=== PATIENT | male | born 1980 | race Caucasian/White ===

== ENCOUNTER 2018-12-22 20:47 | Emergency (ER) | payer MEDICAID, SELFPAY ==
[2018-12-22 20:48] VITALS: BP 163/100; PULSE 113; RESP 18; TEMP 35.8; O2SAT 95; BMI 26.6
--- NOTE | 2018-12-22 21:57 | ED.VISSUMM ---
- ER Visit Summary Date of Service: 12/22/18 Chief Complaint: [Right shoulder pain] History of Present Illness: The patient is a 38 M [presents to the emergency department with pain in his right shoulder for about 2-3 weeks. Patient denies any trauma. He describes a burning sensation in the shoulder. At times he has some numbness to the top of the shoulder and the area of the trapezius. He denies any neck pain. He denies any weakness the extremity. He has been taking ibuprofen and Tylenol with how much pain relief. He had a scheduled appointment with orthopedics but when he got there he found out that they would not take his Medicaid insurance and he did not have $100 co-pay to get them so he could be seen. Patient has a history of hypertension. He denies any shortness of breath or chest pain.] Physical Examination: [HEENT-PERRLA, EOMI. Cranial nerves II through XII grossly intact. TMs clear. Mucous membranes moist. No adenopathy. Cardiovascular-regular rate and rhythm without murmur or ectopy Lungs-clear to auscultation, chest wall stable without crepitus or subcu emphysema Abdomen-normoactive bowel sounds, soft, nontender, no rebound or rigidity, no peritoneal signs. Extremities-intact ?4, normal range of motion, normal pulses, atraumatic. Right shoulder-patient has pain with range of motion of the shoulder however he has normal strength with abduction. Neurovascular intact distally. Patient has some tenderness to the trapezius and supraspinatus muscle. No muscle wasting noted. Deep tendon reflexes are plus 2 out of 4 bilaterally at the biceps, triceps, brachial radialis.] Test Results: [None indicated] Emergency Department Course and Treatment: [Patient was given [place] for pain.] Treatment Plan: [Patient to follow-up with orthopedics as they have made arrangements for a new appointment.] Disposition: [Discharged to home in stable condition] Impression: [Right shoulder pain-etiology uncertain] This note was generated with [employer] dictation software. It may contain incorrect words, spelling, and punctuation that were not noted in review of the chart prior to signing ED Disposition - Plan for ED Patient: Referrals: Care Physician,No Primary [Primary Care Provider] -
--- NOTE | 2018-12-22 22:02 | DCINST.ED_ITS ---
ED Disposition - Plan for ED Patient: Instructions: ED Shoulder Pain [facility] Prescriptions: Hydrocodone Bitart/Apap 5-325 [[place] 5MG-325MG] 1 tab PO Q4H PRN PRN 2 Days #10 tab PRN Reason: Pain Referrals: Care Physician,No Primary [Primary Care Provider] - Parrish Temple DO [STAFF PHYSICIAN] - 3-5 Days
[2018-12-22 22:32] VITALS: RESP 18
[2018-12-22] MEDS: HYDROcodone Bitartrate/Apap 5/325 Tablet PO (22:32)
== END 2018-12-22 22:33 | disposition home or self-care (01) ==
PROVIDERS: Emergency Provider Emergency Medicine
DX: M25.511 Pain in right shoulder (principal); I10 Essential (primary) hypertension; F12.90 Cannabis use, unspecified, uncomplicated; Z72.0 Tobacco use
CPT/HCPCS: 99283

== ENCOUNTER → 2019-01-22 11:04 | Outpatient (CLI) | payer MEDICAID, SELFPAY ==
[2019-01-22 10:59] VITALS: BMI 26.6
--- NOTE | 2019-01-22 11:05 | RAD_ITS ---
STUDY: X-RAY - RIGHT SHOULDER REASON FOR EXAM: Pain. TECHNIQUE: 4 view(s) of the shoulder. COMPARISON: Radiographs 11/08/2015. FINDINGS: Normal glenohumeral articulation. There is no substantial acromioclavicular arthrosis. Normal acromion. Normal humeral head and visualized proximal humerus. The soft tissue structures are unremarkable. Normal visualized pulmonary apex. RAD/Shoulder min 2 Views IMPRESSION: Unremarkable x-ray examination of the right shoulder. Electronically Signed: Trell Miller MD at 13:51 EDT Tel , Service support ,
--- NOTE | 2019-01-22 11:05 | RAD_ITS ---
STUDY: X-RAY - CERVICAL SPINE REASON FOR EXAM: Male, 38 years old. Right shoulder and neck pain. TECHNIQUE: 4 view(s) of the cervical spine including lateral flexion and extension views were obtained. COMPARISON: None FINDINGS: Normal anterior atlantoaxial articulation. Normal odontoid process. Normal cervical lordosis. There is limited flexion and extension with no abnormal motion. Normal vertebral bodies and endplates. Normal disc space heights. Normal visualized intervertebral neuroforamina. There is ossification of the ligamentum nuchae. RAD/Cerv Spine Obl/Flex/Ext Comp IMPRESSION: Limited flexion and extension with no abnormal motion. No acute finding. Electronically Signed: Henri Wilburn MD at 16:06 EDT , Service support ,
== END ==
PROVIDERS: Referring Provider Orthopaedic Surgery; Visit Provider Orthopaedic Surgery
DX: M54.2 Cervicalgia (principal); M25.511 Pain in right shoulder
CPT/HCPCS: 72052; 73030

== ENCOUNTER 2019-02-22 01:29 | Emergency (ER) | payer MEDICAID, SELFPAY ==
[2019-01-22 10:59] VITALS: BMI 26.6
[2019-02-22 01:31] VITALS: BP 154/108; PULSE 130; RESP 18; TEMP 36.7; O2SAT 95; BMI 29.4
--- NOTE | 2019-02-22 02:14 | ED.VISSUMM ---
- ER Visit Summary Date of Service: 02/22/19 Chief Complaint: Right ear pain and drainage History of Present Illness: The patient is a 38 M who presents with right ear pain and drainage that has been getting worse over the past 2 days. Patient describes the pain as aching. Patient also feels a fullness in his right ear and admits to some decreased hearing out of his right ear. Patient states his pain is over the right external ear and earlobe. Patient admits to subjective fevers and chills. Patient also admits to a cough with some white sputum. Patient admits to some nausea but denies any vomiting. Patient denies any headaches or visual changes. Patient denies any neck pain. Patient denies any chest pain or shortness of breath. Physical Examination: Vital signs are stable except for tachycardia of 130. Patient is afebrile. Patient is in no acute distress. The right external auditory canal was occluded with cerumen. There is edema, erythema, tenderness, and serous drainage from the right earlobe. Oral mucosa is pink and moist. Oropharynx is clear. Neck is supple. Trachea is midline. There is no JVD noted. Heart was regular and tachycardic. Lungs are clear and equal bilateral. Abdomen is soft. Bowel sounds are normal. There is no tenderness. Cranial nerves II through XII are intact. There are no focal motor or sensory deficits noted. Test Results: CBC showed a mild leukocytosis of 13.2. Creatinine was 1.74. BUN was 28. The remaining labs were normal. Emergency Department Course and Treatment: Patient was given IV fluids here. Patient was given a dose of Unasyn here. Patient's heart rate improved tomorrow for reevaluation. Patient was feeling better on reevaluation. Patient was given a prescription for Augmentin. Patient was instructed to follow-up with his primary care physician in 5 to 7 days. Patient understood and was agreeable with the plan. All questions were answered. Disposition: Discharge home Impression: 1. Cellulitis right ear 2. Dehydration This note was generated with [employer] software. It may contain incorrect words, spelling, and punctuation that were not noted in review of the chart prior to signing ED Disposition - Plan for ED Patient: Disposition: Home or Assisted Living Diagnosis: Cellulitis of right earlobe, Dehydration Instructions: ED Cellulitis Facial Prescriptions: Amox/Clavulanate Tablet [Augmentin Tablet] 403 mg PO Q12H #20 tab Referrals: Care Physician,No Primary [Primary Care Provider] - Shania Marrero DO [STAFF PHYSICIAN] - 5-7 Days
[2019-02-22] MEDS: 0.9% Normal Saline 1,000 ML 1000 ML IV (02:26)
[2019-02-22 02:43] LABS: Absolute Lymphocyte Count 2.45 X10^3/ul (0.83-4.51); Absolute Neutrophil Count 9.7 X10^3/uL (2.0-7.7); Basophil# 0.05 X10^3/uL; Basophil% 0.4 % (0-1); Eosinophil# 0.02 X10^3/uL; Eosinophils% 0.2 % (0-5); Hematocrit 47.9 % (40-54); Hemoglobin 15.7 g/dl (13.0-16.5); Lymphocyte # 2.45 X10^3/ul (4.0); Lymphocyte % 18.5 % (19-41); Mean Corp Hgb Conc 32.8 g/gl (32-36); Mean Corpuscular Volume 88.5 fL (80-94); Mean Platelet Vol. 9.6 fl (6.2-12.0); Monocyte% 7.6 % (0-10); Neutrophil # 9.67 X10^3/uL (2.7-7.7); Platelet Count 331 K/mm3 (150-450); RBC Distribution Width SD 45.2 fl (35.1-43.9); Red Blood Count 5.41 M/mm3 (4.6-6.2); White Blood Count 13.2 K/mm3 (4.4-11.0)
[2019-02-22 02:44] LABS: Differential Indicated SCAN CRITERIA MET; POSITIVE COUNT NO; POSITIVE DIFFERENTIAL NO; POSITIVE MORPHOLOGY YES
[2019-02-22 02:45] LABS: Anion Gap 9 (5-15); BUN 28 mg/dL (7-18); BUN/Creat Ratio 16.1 RATIO (10-20); Calcium,Total 9.4 mg/dL (8.5-10.1); Chloride 105 mmol/L (98-107); Creatinine, Serum 1.74 mg/dL (0.70-1.30); EST Glomerular Filtration Rate 47 mL/min (>60); Est Glom Filt Rate - Afr Amer 57 mL/min (>60); Estimated Creatinine Clearance 53.82 ml/min; Glucose 97 mg/dL (74-106); Potassium 4.1 mmol/L (3.5-5.1); Sodium Level 141 mmol/L (136-145)
[2019-02-22 03:10] LABS: Differential Comment SCANNED
[2019-02-22 03:24] VITALS: BP 149/100; PULSE 100; RESP 22; O2SAT 98
== END 2019-02-22 03:29 | disposition home or self-care (01) ==
PROVIDERS: Emergency Provider Emergency Medicine
DX: H60.11 Cellulitis of right external ear (principal); E86.0 Dehydration; I10 Essential (primary) hypertension; Z72.0 Tobacco use
CPT/HCPCS: 80048; 85025; 96365; 99284; A4216; J0295

== ENCOUNTER 2019-03-03 05:58 | Observation (INO) | payer MEDICAID, SELFPAY ==
[2019-03-03] VITALS (11 sets, daily range): BP systolic 140–172; BP diastolic 67–101; PULSE 74–92; RESP 16–18; TEMP 36.7–36.8; O2SAT 97–98; BMI 31.4; BMI 30.4
--- NOTE | 2019-03-03 06:12 | RAD_ITS ---
HISTORY: Chest Pain EXAM:XR Chest 2 Views COMPARISON: None FINDINGS: EKG leads in place. Normal heart size. No vascular congestion, pleural effusion, or acute pulmonary infiltration. No pneumothorax. Probable remote fracture of the anterolateral left fifth rib. Chronic deformity of the distal left clavicle. RAD/Chest PA and Lateral IMPRESSION: No acute cardiopulmonary disease. at 0635 Reported and signed by: Shar Henning MD Electronically Signed: Shar Henning, at 6:34 EDT Tel , Service support ,
--- NOTE | 2019-03-03 06:12 | EKG12_ITS ---
Test Reason : CP Blood Pressure : / mmHG Vent. Rate : 090 BPM Atrial Rate : 090 BPM P-R Int : 162 ms QRS Dur : 092 ms QT Int : 360 ms P-R-T Axes : 061 010 053 degrees QTc Int : 440 ms Normal sinus rhythm Incomplete right bundle branch block Borderline ECG Confirmed by JAZMINE MARIN ([id number]), photograph editor DANIELLE HOPPER ([id number]) on 03/05/2019 8:44:02 AM Referred By: YAMILKA Confirmed By:JAZMINE MARIN
--- NOTE | 2019-03-03 06:15 | ED.DCSUM_ITS ---
- ER Visit Summary Date of Service: 03/03/19 Chief Complaint: Chest pain History of Present Illness: The patient is a 38 M who presents with chest pain. Is been going on for about 2 to 3 days. He describes as a tightness diffusely through his chest with radiation down the left arm and into the back. This is worse when he coughs. He also states that he feels short of breath and has intermittently become sweaty. 4 days ago he had a near syncopal episode where he just got dizzy and fell. This was before his pain began. No recent travel or surgery. No history of DVT or pulmonary embolism. He is treated for hypertension. He has a history of renal failure remotely however this did re- resolve and they are uncertain what caused it. Physical Examination: Initial blood pressure 172/101 vitals otherwise normal Patient slightly diaphoretic Heart regular rate and rhythm Lungs clear he does have some mid chest tenderness Abdomen soft Extremities nontender without edema Test Results: EKG shows a sinus rhythm at a rate of 90 with an incomplete right bundle branch block. Laboratory studies including troponin and d-dimer unremarkable. Chest x-ray shows no acute disease. Emergency Department Course and Treatment: Even aspirin. His work-up as above is unremarkable. However I am concerned given his report of chest pain, shortness of breath, diaphoresis, near syncope. I feel that at minimum he needs serial enzymes and possible stress testing. Patient was discussed with hospitalist who agrees to admit. Treatment Plan: [] Disposition: Admit Impression: Chest pain This note was generated with [employer] dictation software. It may contain incorrect words, spelling, and punctuation that were not noted in review of the chart prior to signing ED Disposition - Plan for ED Patient: Referrals: Care Physician,No Primary [Primary Care Provider] -
[2019-03-03 06:23] LABS: Absolute Lymphocyte Count 2.81 X10^3/ul (0.83-4.51); Absolute Neutrophil Count 4.2 X10^3/uL (2.0-7.7); Basophil# 0.03 X10^3/uL; Basophil% 0.4 % (0-1); Eosinophil# 0.24 X10^3/uL; Hematocrit 42.2 % (40-54); Hemoglobin 13.9 g/dl (13.0-16.5); Lymphocyte # 2.81 X10^3/ul (4.0); Lymphocyte % 34.6 % (19-41); Mean Corp Hgb Conc 32.9 g/gl (32-36); Mean Corpuscular Hgb 29.9 pg (27.0-32.0); Mean Corpuscular Volume 90.8 fL (80-94); Mean Platelet Vol. 9.7 fl (6.2-12.0); Monocyte# 0.82 X10^3/uL; Monocyte% 10.1 % (0-10); Neutrophil % 51.8 % (47-70); Platelet Count 338 K/mm3 (150-450); RBC Distribution Width CV 13.4 % (11.6-14.6); RBC Distribution Width SD 44.2 fl (35.1-43.9); Red Blood Count 4.65 M/mm3 (4.6-6.2); White Blood Count 8.1 K/mm3 (4.4-11.0)
[2019-03-03 06:26] LABS: POSITIVE COUNT NO; POSITIVE DIFFERENTIAL NO; POSITIVE MORPHOLOGY NO
[2019-03-03] MEDS: Aspirin 81 MG TAB.CHEW 324 MG PO (06:40)
[2019-03-03 06:41] LABS: Anion Gap 7 (5-15); BUN 19 mg/dL (7-18); BUN/Creat Ratio 15.3 RATIO (10-20); Calcium,Total 8.5 mg/dL (8.5-10.1); Chloride 110 mmol/L (98-107); Creatinine, Serum 1.24 mg/dL (0.70-1.30); EST Glomerular Filtration Rate 69 mL/min (>60); Est Glom Filt Rate - Afr Amer 84 mL/min (>60); Estimated Creatinine Clearance 75.52 ml/min; Glucose 118 mg/dL (74-106); Potassium 3.7 mmol/L (3.5-5.1); Sodium Level 143 mmol/L (136-145)
[2019-03-03 07:10] LABS: D-Dimer Quantitative (DVT/PE) < 0.27 FEU/ug/m (0.27-0.49)
--- NOTE | 2019-03-03 07:19 | HP.PCM_ITS ---
History of Present Illness Date of Admission: 03/03/19 Chief Complaint: chest pain The patient is a 38 year old M with past medical history of polysubstance abuse and hypertension. He was admitted through the ED on 02/23/2019 with a complaint of chest pain. Chest pain was retrosternal, both on the right and left side, assisted with diaphoresis and lightheadedness as well as shortness of breath. Chest pain is reproducible with palpation. He states chest pain has been going on for about a year but got severe yesterday so he decided to come into the ED. The ED, vitals were stable. D-dimer done was negative. EKG done no showed no acute ST changes. Initial troponin was negative. He also said he had a near syncopal episode due to chest pain. He is being admitted to be manages for chest pain to rule out ACS. ] Past Medical History Past Medical History (Chronic Problems): Chronic Problems (Last Updated 01/22/19 @ 11:56 by Sandhya Palmer) history of head trauma (Chronic) Medical History: Medical History (Last Updated 01/22/19 @ 11:56 by Sandhya Palmer) Hypertension I10 Allergies ciprofloxacin [From Cipro] Allergy (Verified 03/03/19 06:04) Hives Home Medications: Ambulatory Orders Medication Instructions Recorded Lisinopril 20 mg PO DAILY 12/22/18 Acetaminophen [Tylenol] 650 mg PO Q6H PRN PRN #30 tablet 03/03/19 Surgical History: no surgical history Psychiatric History: No pertinent psych hx Lives: Spouse/ Significant Other Smoking Status: Current every day smoker Tobacco Use: Cigarettes Alcohol: None - *Family History Maternal History Items: No pertinent history Review of Systems Constitutional: Denies: Chills, Fever, Weight Change Eyes: Denies: Blurred vision HEENT: Denies: Head Aches, Sinus Congestion, Sinus Drainage Cardiovascular: Reports: Chest Pain, Light Headedness. Denies: Chest Pressure, Chest Tightness, Edema, Heaviness, Orthopnea, Palpitations, Paroxysmal Noc. Dyspnea, Syncope Respiratory: Reports: Shortness of Breath, Shortness of breath upon exertion. Denies: Cough, Shortness of breath at rest, Sputum production, Wheezing Gastrointestinal: Denies: Abdominal Pain, Nausea, Vomiting Genitourinary: Denies: Dysuria Musculoskeletal: Denies: Joint Pain, Joint Tenderness Skin: Denies: Rash, Wounds Neurological: Denies: Numbness, Tingling, Focal weakness Psychiatric: Denies: Anxiety, Depression, Homicidal Ideations, Suicidal Ideations Hematologic/ Lymphatic: Denies: Easy Bruising, Easy Bleeding VTE Information - Inpt Only VTE Present on Admission: No VTE Pharm Prophylaxis ordered?: Yes - Physical Exam General: Alert, Oriented x3, Cooperative, No apparent distress HEENT: Atraumatic, PERRLA, EOMI, Normocephalic Oral: Moist Mucosa Neck: Supple, No JVD, Negative Carotid Bruits Lungs: Clear to auscultation, Normal air movement Cardiovascular: Regular rate, Regular Rhythm, Normal S1, Normal S2, No murmurs Abdomen: Bowel Sounds Present, Soft, Non Tender Extremities: No clubbing, No cyanosis, No edema, Capillary Refill Less than 3 Seconds Skin: No rashes, No breakdown Musculoskeletal: - - chest pain reproducible with palpation Lymphatic: No Cervical, Supraclavicular, or Inguinal Adenopathy Neurological: Cranial nerves II-XII grossly intact, Deep Tendon Reflexes 2+/4 and Symmetrical, Neuro grossly intact, Motor Exam 5/5 strength throughout Psych/Mental Status: Normal Affect, Appropriate, Alert and oriented to time, place, person, mood and affect Vital Signs Temp Pulse Resp BP Pulse Ox 98.0 F 92 18 172/101 H 98 03/03/19 06:00 03/03/19 06:00 03/03/19 06:00 03/03/19 06:00 03/03/19 06:00 Oxygen Flow Rate (L/min) 2 Oxygen Delivery Method Nasal Cannula Weight: 200 lb 9.93 oz Body Mass Index (BMI) 31.4 Laboratory Tests Past 24 Hrs 03/03/19 03/03/19 03/03/19 06:03 06:03 06:03 WBC 8.1 RBC 4.65 Hgb 13.9 Hct 42.2 MCV 90.8 MCH 29.9 MCHC 32.9 RDW 13.4 RDW Differential 44.2 H Plt Count 338 MPV 9.7 Immature Gran % (Auto) 0.100 Neut % (Auto) 51.8 Lymph % (Auto) 34.6 Cochran % (Auto) 10.1 H Eos % (Auto) 3.0 Baso % (Auto) 0.4 Absolute Neuts (auto) 4.2 Absolute Lymphs (auto) 2.81 Total Counted Not Reportable D-Dimer Quant (PE/DVT) < 0.27 L Sodium 143 Potassium 3.7 Chloride 110 H Carbon Dioxide 26.0 Anion Gap 7 BUN 19 H Creatinine 1.24 Estim Creat Clear Calc 75.52 Est GFR (MDRD) Af Amer 84 Est GFR (MDRD) Non-Af 69 BUN/Creatinine Ratio 15.3 Glucose 118 H Calcium 8.5 Troponin I < 0.015 Diagnostic Data Chest X-Ray 03/03/19 06:12 IMPRESSION: No acute cardiopulmonary disease. at 0635 Reported and signed by: Shar Henning MD Electronically Signed: Shar Henning, at 6:34 EDT Tel , Service support , Assessment/Plan All Active Problems (Last Updated 01/22/19 @ 11:56 by Sandhya Palmer) Pilonidal cyst (Acute) 38-year-old male presenting with complaint of chest pain. 1. Chest pain to rule out ACS * She will troponin was negative. We will cycle. * Sublingual nitroglycerin as needed. * P.o. aspirin 81 mg daily. * Stress test. Will do nuclear stress test with treadmill. * 2. History of nicotine dependence: States he now smokes about half pack daily and cut down about 6 months ago from 1 pack daily. Counseled to quit. 3. Hypertension: Poorly controlled. Blood pressures in the 140s. On lisinopril 20 mg daily. Will continue. Counseled on adherence. IV hydralazine PRN. 4. History of polysubstance abuse: States he quit about 3 years ago and has been clean. Counseled to continue abstaining. DVT prophylaxis: Heparin Code Visit OBSV E&M: 84007 Initial observation care L2
--- NOTE | 2019-03-03 08:09 | EKG12_ITS ---
Test Reason : CP ADMISSION Blood Pressure : / mmHG Vent. Rate : 073 BPM Atrial Rate : 073 BPM P-R Int : 172 ms QRS Dur : 096 ms QT Int : 394 ms P-R-T Axes : 060 010 029 degrees QTc Int : 434 ms Normal sinus rhythm Incomplete right bundle branch block Borderline ECG When compared with ECG of 03-MAR-2019 06:01, MANUAL COMPARISON REQUIRED, DATA IS UNCONFIRMED Confirmed by DARREL VIGIL, ADDIE ([id number]), editor news CAITLIN MTZ ([id number]) on 03/09/2019 2:37:01 PM Referred By: PRANAV Confirmed By:ADDIE ROJO MD
[2019-03-03] MEDS: Nitroglycerin (INPATIENT USE) 0.4 MG TAB.SUBL SUBLINGUAL ×3 (09:17→09:28)
[2019-03-03] MEDS: Acetaminophen 325 MG Tablet 650 MG PO (09:40)
[2019-03-03 09:58] LABS: Partial Thromboplast Time 26.9 Seconds (24.1-36.2); Prothrombin Time (Protime)PT. 13.2 SECONDS (11.7-14.9)
--- NOTE | 2019-03-03 11:47 | STRESSREP ---
Stress Test Report Date: 03-03-19 Procedure: Exercise tolerance test/imaging study Indications: Chest pain Consent: Per the patient Procedure: The patient exercised on a Ramiro protocol for 10 minutes and 30 seconds completing Stage III and 1 minute and 30 seconds of Stage IV achieving a peak heart rate of 166 bpm (91 % predicted maximal heart rate) with a peak blood pressure 174/60 mmHg and a peak MET capacity of 12 METs. The baseline ECG demonstrated normal sinus rhythm. The peak exercise ECG demonstrated no obvious ECG changes. There were no cardiac dysrhythmias pretest, during exercise, or recovery. The functional capacity was considered good. There was chest discomfort pretest, during exercise, and recovery without significant change. The examination was discontinued secondary to dizziness. Impression: 1. Technically adequate (percent predicted maximal heart rate greater than 85%) exercise tolerance test 2. Peak exercise ECG with no obvious ECG changes 3. There were no cardiac dysrhythmias pretest, during exercise, or recovery 4. Nuclear images pending Myocardial perfusion imaging study: Technique: The patient was injected with 11.3 mCi of technetium 99m Cardiolite and subsequently rest SPECT Cardiolite nuclear imaging was obtained in the horizontal long, vertical long, and short axis views. The patient exercised on a Ramiro protocol for 10 minutes and 30 seconds completing Stage III and 1 minute and 30 seconds of Stage IV achieving a peak heart rate of 166 bpm (91 % predicted maximal heart rate) with a peak blood pressure 174/60 mmHg and a peak MET capacity of 12 METs.The patient was injected with 33.1 mCi of technetium 99m Cardiolite and subsequently stress SPECT Cardiolite nuclear imaging was obtained in the horizontal long, vertical long, and short axis views. A gated Cardiolite study at peak stress was obtained. Interpretation: Rest and stress SPECT Cardiolite nuclear imaging status post realignment, normalization, and attenuation correction, demonstrates the appearance of relative uniform tracer uptake and myocardial perfusion appearing within normal limits. There is end systolic thickening and brightening. The gated Cardiolite study demonstrates myocardial thickening and inward wall motion. The reported LVEF is 58 %. Impression: 1. Rest and stress SPECT Cardiolite nuclear imaging demonstrate relative uniform tracer uptake and myocardial perfusion appearing within normal limits. 2. The gated Cardiolite study reports an LVEF of 58 %. This note was generated with [employer] software. It may contain incorrect words, spelling, and punctuation that were not noted in checking the note before signing.
--- NOTE | 2019-03-03 12:05 | PCM.DC ---
You will use the following diet at home:: No restrictions Your food should be the consistency of: Regular Discharge Activity: Return to Normal Activity Weight Bearing Status: Weight bearing as tolerated Call your doctor if you observe: Chest pain Instructions: ED Chest Pain Atypical Unkn Cause Allergies/Adverse Reactions: Allergies ciprofloxacin [From Cipro] Allergy (Verified 03/03/19 06:04) Hives Medications to take at Discharge Lisinopril 20 mg PO DAILY 12/22/18 Acetaminophen [Tylenol] 650 mg PO Q6H PRN PRN #30 tablet 03/03/19 The following prescriptions were given: Acetaminophen [Tylenol] 650 mg PO Q6H PRN PRN #30 tablet PRN Reason: Pain Primary Care Physician: Care Physician,No Primary [Primary Care Provider] - Test Results: Test results from this visit will be discussed in further detail at your follow-up appointment, if applicable. Please Follow Up With: Frank Trujillo MD When: call office for an appointment. Proposed Discharge Date: 03/03/19
--- NOTE | 2019-03-03 12:07 | PCM.DC.SUM ---
Discharge Date and Diagnosis Date of Admission: 03/03/19 Date of Discharge: 03/03/19 - Primary Discharge Diagnosis chest pain musculoskeletal chest pain - Secondary Discharge Diagnosis Chronic Problems (Last Updated 01/22/19 @ 11:56 by Sandhya Palmer) history of head trauma (Chronic) Hospital Course and Treatment Imaging Results: 03/03/19 06:12 Chest PA and Lateral [RAD] Stat 03/03/19 09:24 Nuclear Stress Test - Treadmil [NM] Routine Operations: None Procedures: Stress test Summary of Care Provided: The patient is a 38 year old M with past medical history of polysubstance abuse and hypertension. He was admitted through the ED on 02/23/2019 with a complaint of chest pain. Chest pain was retrosternal, both on the right and left side, assisted with diaphoresis and lightheadedness as well as shortness of breath. Chest pain is reproducible with palpation. He states chest pain has been going on for about a year but got severe yesterday so he decided to come into the ED. The ED, vitals were stable. D-dimer done was negative. EKG done no showed no acute ST changes. He was admitted to be manages for chest pain to rule out ACS. He had a stress test which was negative. Since pain was reproducible with palpation, it was thought to be mainly musculoskeletal. He was therefore given a script for PO tylenol. He was discharged home on 03/03/19. he is to follow up with his PCP in one week. Patient had no PCP and so was referred to Dr. Chau Trujillo to establish PCP relationship. Patient was seen and examined prior to discharge. [] - Physical Exam General: Alert, Oriented x3, Cooperative HEENT: Atraumatic, PERRLA, EOMI, Normocephalic Oral: Moist Mucosa Neck: Supple, No JVD, Negative Carotid Bruits Lungs: Clear to auscultation, Normal air movement Cardiovascular: Regular rate, Regular Rhythm, Normal S1, Normal S2, No murmurs Abdomen: Bowel Sounds Present, Soft, Non Tender, Non-Distended, No Hepato-splenomegaly Extremities: No clubbing, No cyanosis, No edema, Capillary Refill Less than 3 Seconds Skin: No rashes, No breakdown Musculoskeletal: - - tenderness with palpation of chest wall muscles Lymphatic: No Cervical, Supraclavicular, or Inguinal Adenopathy Neurological: Cranial nerves II-XII grossly intact, Neuro grossly intact, Motor Exam 5/5 strength throughout Psych/Mental Status: Normal Affect, Appropriate, Alert and oriented to time, place, person, mood and affect Vital Signs Temp Pulse Resp BP Pulse Ox 98.2 F 83 16 140/67 H 97 03/03/19 09:16 03/03/19 09:28 03/03/19 09:16 03/03/19 09:33 03/03/19 11:00 Oxygen Flow Rate (L/min) 2 Oxygen Delivery Method Room Air Weight: 193 lb 9.054 oz Body Mass Index (BMI) 30.4 Intake and Output for Last 24 Hours 03/01/19 03/02/19 03/03/19 23:59 23:59 23:59 Intake Total 50 / 50 Balance 50 / 50 Laboratory Tests Past 24 Hrs 03/03/19 03/03/19 03/03/19 06:03 06:03 06:03 WBC 8.1 RBC 4.65 Hgb 13.9 Hct 42.2 MCV 90.8 MCH 29.9 MCHC 32.9 RDW 13.4 RDW Differential 44.2 H Plt Count 338 MPV 9.7 Immature Gran % (Auto) 0.100 Neut % (Auto) 51.8 Lymph % (Auto) 34.6 [place] % (Auto) 10.1 H Eos % (Auto) 3.0 Baso % (Auto) 0.4 Absolute Neuts (auto) 4.2 Absolute Lymphs (auto) 2.81 Total Counted Not Reportable PT INR APTT D-Dimer Quant (PE/DVT) < 0.27 L Sodium 143 Potassium 3.7 Chloride 110 H Carbon Dioxide 26.0 Anion Gap 7 BUN 19 H Creatinine 1.24 Estim Creat Clear Calc 75.52 Est GFR (MDRD) Af Amer 84 Est GFR (MDRD) Non-Af 69 BUN/Creatinine Ratio 15.3 Glucose 118 H Calcium 8.5 Troponin I < 0.015 03/03/19 03/03/19 06:03 08:40 WBC RBC Hgb Hct MCV MCH MCHC RDW RDW Differential Plt Count MPV Immature Gran % (Auto) Neut % (Auto) Lymph % (Auto) [place] % (Auto) Eos % (Auto) Baso % (Auto) Absolute Neuts (auto) Absolute Lymphs (auto) Total Counted PT 13.2 INR 1.0 APTT 26.9 D-Dimer Quant (PE/DVT) Sodium Potassium Chloride Carbon Dioxide Anion Gap BUN Creatinine Estim Creat Clear Calc Est GFR (MDRD) Af Amer Est GFR (MDRD) Non-Af BUN/Creatinine Ratio Glucose Calcium Troponin I < 0.015 Diagnostic Data Chest X-Ray 03/03/19 06:12 IMPRESSION: No acute cardiopulmonary disease. at 0635 Reported and signed by: Shar Henning MD Electronically Signed: Shar Henning, at 6:34 EDT Tel , Service support , Discharge Activity: Return to Normal Activity Weight Bearing Status: Weight bearing as tolerated Call your doctor if you observe: Chest pain Home Medications: Medications to take at Discharge Lisinopril 20 mg PO DAILY 12/22/18 Acetaminophen [Tylenol] 650 mg PO Q6H PRN PRN #30 tablet 03/03/19 Following Prescrptions Were Given to Patient: Acetaminophen [Tylenol] 650 mg PO Q6H PRN PRN #30 tablet PRN Reason: Pain Primary Care Physician: Care Physician,No Primary [Primary Care Provider] - Please Follow Up With: Frank Trujillo MD When: call office for an appointment. Patient Instructions: ED Chest Pain Atypical Unkn Cause Disposition: Home Minutes spent on discharge:: 40 Patient Condition:: Stable Medical Necessity - Tobacco Use Smoking Status: Current every day smoker Meaningful Use Info Meaningful Use Diagnoses (Choose all that apply): None applicable Code Visit OBSV E&M: 20934 Observ/hosp same date L3
--- NOTE | 2019-03-03 12:08 | DCINST_ITS ---
You will use the following diet at home:: No restrictions Your food should be the consistency of: Regular Discharge Activity: Return to Normal Activity Weight Bearing Status: Weight bearing as tolerated Call your doctor if you observe: Chest pain Instructions: ED Chest Pain Atypical Unkn Cause Allergies/Adverse Reactions: Allergies ciprofloxacin [From Cipro] Allergy (Verified 03/03/19 06:04) Hives Medications to take at Discharge Lisinopril 20 mg PO DAILY 12/22/18 Acetaminophen [Tylenol] 650 mg PO Q6H PRN PRN #30 tablet 03/03/19 The following prescriptions were given: Acetaminophen [Tylenol] 650 mg PO Q6H PRN PRN #30 tablet PRN Reason: Pain Primary Care Physician: Care Physician,No Primary [Primary Care Provider] - Test Results: Test results from this visit will be discussed in further detail at your follow- up appointment, if applicable. Please Follow Up With: Frank Trujillo MD When: call office for an appointment. Proposed Discharge Date: 03/03/19
--- NOTE | 2019-03-03 12:13 | PHA.DC.MR ---
Pharmacy Service has performed discharge medication reconciliation for this patient. The patient's discharge medication list was reviewed for discrepancies and discrepancies were resolved. Home Medications Lisinopril 20 mg PO DAILY 12/22/18 Acetaminophen [Tylenol] 650 mg PO Q6H PRN PRN #30 tablet 03/03/19
== END 2019-03-03 12:07 | disposition home or self-care (01) ==
LOC: ED 06:13 → PCU 07:30
PROVIDERS: Admitting Provider Student in an Organized Health Care Education/Training Program; Emergency Provider Emergency Medicine; Visit Provider Student in an Organized Health Care Education/Training Program
DX: R07.89 Other chest pain (principal); R06.02 Shortness of breath; I10 Essential (primary) hypertension; Z79.899 Other long term (current) drug therapy; F17.210 Nicotine dependence, cigarettes, uncomplicated
CPT/HCPCS: 36415; 71046; 78452; 80048; 84484; 85025; 85379; 85610; 85730; 93005; 93017; 99285; 99406; A9500; A4216

== ENCOUNTER 2019-03-14 19:11 | Emergency (ER) | payer MEDICAID, SELFPAY ==
[2019-03-03 08:11] VITALS: BMI 30.4
[2019-03-14 19:11] VITALS: BP 165/105; PULSE 98; RESP 18; TEMP 36.7; O2SAT 99; BMI 29.8
--- NOTE | 2019-03-14 19:29 | CT_ITS ---
STUDY: CT ABDOMEN AND PELVIS WITH CONTRAST REASON FOR EXAM: Male, 38 years old. Abdominal pain, fatigue and vomiting. Hematochezia. RADIATION DOSAGE (If Supplied By Facility): CTDIvol = ( 18.15 ) mGy, DLP = ( 932.41 ) mGycm TECHNIQUE: Transaxial images were obtained from the dome of the diaphragm to the symphysis pubis without oral contrast. 100ML IV Isovue 300 was administered. Sagittal and coronal images were reconstructed. Individualized dose optimization techniques were used for this CT. COMPARISON: None. FINDINGS: There is mild scarring in the right lung base. Visualized heart is normal. The liver is unremarkable. The gallbladder is contracted. The pancreas is normal. There are multiple calcifications in the spleen consistent with old granulomatous disease. The adrenal glands are normal. The kidneys are unremarkable. No stones or hydronephrosis. The aorta is normal in caliber. There is no free fluid, free air, or organized collection. No bowel obstruction or inflammatory change. Normal appendix. Urinary bladder is unremarkable. Normal abdominal wall. There is an old ununited fracture of the right L3 transverse process. There is chronic loss of vertebral body height at T12. Mild degenerative changes of the thoracolumbar spine are noted. No acute osseous abnormality. CT/Abdomen/Pelvis W IV Cont ONLY IMPRESSION: 1. No acute findings. 2. Old granulomatous disease. 3. Chronic changes are detailed above. Electronically Signed: Leyla Frank MD at 21:01 EDT Tel , Service support ,
[2019-03-14 19:32] VITALS: BP 177/104; PULSE 86; RESP 16; O2SAT 100
--- NOTE | 2019-03-14 19:42 | ED.DCSUM_ITS ---
- ER Visit Summary Date of Service: 03/14/19 Chief Complaint: Abdominal pain History of Present Illness: The patient is a 38 M who presents to the emergency department with a variety of complaints that are very sporadic and quite odd. He states that he is having some sharp pains in his abdomen that began today. Today he states he vomited. States he has had some bright red blood with his orange stool both in the toilet water and on the toilet paper. He states that he is sweating a oranges yellow substance. He states that he has some white stringy things in his stool. [facility] and they advised him to bring a stool specimen back on Saturday. Interestingly enough the patient checked him with another patient who has similar complaints except for the abdominal pain and vomiting. Patient has a long history of polysubstance abuse but states he has been clean. Physical Examination: Afebrile vital signs are stable Gen: Well-nourished well-developed Head: Normocephalic atraumatic Eyes: Perrl EOMI ENT: TMs clear no rhinorrhea moist mucous membranes Neck: Supple no lymphadenopathy no JVD nontender CVS: Regular rate rhythm no murmurs normal S1-S2 Respiratory: No distress clear to auscultation bilaterally chest nontender Abdomen: Soft nontender nondistended normal bowel sounds no masses Rectal: non thrombosed hemorrhoid no blood no fissure Back: Nontender Extremity: Nontender no edema Skin: Normal color no rash Neuro: alert orientated ?3 CN II-XII intact normal strength sensation reflexes gait cerebellar Psych: No SI/HI Test Results: CBC CMP is normal. Urine normal. CT abdomen pelvis normal. Emergency Department Course and Treatment: Patient received Zofran and Toradol. He is resting comfortably. I will write for Zofran at home. He is to follow-up with his doctors as scheduled on Saturday for return of the stool specimen. I believe his bleeding is most likely hemorrhoidal in nature. Impression: 1. Acute abdominal pain 2. Hemorrhoidal bleeding This note was generated with [employer] dictation software. It may contain incorrect words, spelling, and punctuation that were not noted in review of the chart prior to signing ED Disposition - Plan for ED Patient: Disposition: Home or Assisted Living Instructions: ED Hemorrhoids Referrals: Barbie Devi [NON-STAFF] - (as scheduled)
[2019-03-14] MEDS: Ketorolac 30 MG/ML Syringe IV (19:48)
[2019-03-14] MEDS: Ondansetron 4 MG/2 ML Vial IV (19:48)
[2019-03-14] MEDS: 0.9% Normal Saline 1,000 ML 1000 ML IV (19:48)
[2019-03-14 20:03] LABS: Absolute Lymphocyte Count 2.17 X10^3/ul (0.83-4.51); Absolute Neutrophil Count 3.6 X10^3/uL (2.0-7.7); Basophil# 0.05 X10^3/uL; Basophil% 0.8 % (0-1); Hematocrit 40.4 % (40-54); Hemoglobin 12.8 g/dl (13.0-16.5); Lymphocyte # 2.17 X10^3/ul (4.0); Mean Corp Hgb Conc 31.7 g/gl (32-36); Mean Corpuscular Hgb 29.1 pg (27.0-32.0); Mean Corpuscular Volume 91.8 fL (80-94); Mean Platelet Vol. 9.8 fl (6.2-12.0); Monocyte# 0.51 X10^3/uL; Monocyte% 7.8 % (0-10); Neutrophil # 3.64 X10^3/uL (2.7-7.7); Neutrophil % 55.4 % (47-70); Platelet Count 315 K/mm3 (150-450); RBC Distribution Width CV 12.9 % (11.6-14.6); RBC Distribution Width SD 43.5 fl (35.1-43.9); White Blood Count 6.6 K/mm3 (4.4-11.0)
[2019-03-14 20:08] LABS: POSITIVE COUNT NO; POSITIVE DIFFERENTIAL NO; POSITIVE MORPHOLOGY NO
[2019-03-14 20:16] LABS: Bacteria 0 SEEN /hpf (None Seen); Mucous, Urine 0 SEEN /hpf (<or=2+); Red Blood Cells-Urine 0 SEEN /hpf (0-5); Squamous Epithelial Cells - UA 0 SEEN /hpf (0-5); White Blood Cells 0 SEEN /hpf (0-5)
[2019-03-14 20:20] LABS: AST(SGOT) 121 U/L (15-37); Alanine Aminotransfer ALT/SGPT 242 U/L (16-61); Albumin, Serum 3.4 g/dL (3.2-5.0); Alkaline Phosphatase 106 U/L (45-117); Anion Gap 7 (5-15); BUN 8 mg/dL (7-18); BUN/Creat Ratio 8.1 RATIO (10-20); Calcium,Total 8.5 mg/dL (8.5-10.1); Chloride 109 mmol/L (98-107); Creatinine, Serum 0.99 mg/dL (0.70-1.30); EST Glomerular Filtration Rate 90 mL/min (>60); Est Glom Filt Rate - Afr Amer 108 mL/min (>60); Estimated Creatinine Clearance 94.59 ml/min; Globulin 3.4 g/dL (2.2-4.2); Glucose 127 mg/dL (74-106); Lipase 122 U/L (73-393); Potassium 3.5 mmol/L (3.5-5.1); Protein, Total 6.8 g/dL (6.4-8.2); Sodium Level 144 mmol/L (136-145)
[2019-03-14 20:24] LABS: Color, Urine Yellow (Yellow); Glucose, Dipstick Normal (Normal); Ketone-Dipstick Negative (Negative); Leukocyte Esterase-Dipstick 25 /ul (Negative); Nitrite-Dipstick Negative (Negative); Occult Blood-Urine Negative /ul (Negative); Protein-Dipstick Negative (Negative); Urine Bilirubin Dipstick Negative (Negative); Urine Clarity Clear (Clear); Urine Urobilinogen Normal (Normal); Urine pH 6.5 (5.0 - 8.0)
[2019-03-14 20:53] LABS: Amphetamine Urine VISTA NEGATIVE (<1000 ng/mL); Barbiturate Urine VISTA NEGATIVE (< 200 ng/mL); Benzodiazepine Urine VISTA NEGATIVE (< 200 ng/mL); Cocaine Urine VISTA NEGATIVE (< 300 ng/mL); Ecstacy Urine VISTA NEGATIVE (< 500 ng/mL); Methadone Urine VISTA NEGATIVE (< 300 ng/mL); PCP Urine VISTA NEGATIVE (< 25 ng/mL); THC Urine VISTA NEGATIVE (< 50 ng/mL); Vista UDS pH Range 6
[2019-03-14 21:23] VITALS: BP 152/99; PULSE 80; RESP 16; O2SAT 98
== END 2019-03-14 21:25 | disposition home or self-care (01) ==
PROVIDERS: Emergency Provider Emergency Medicine
DX: R10.9 Unspecified abdominal pain (principal); K64.9 Unspecified hemorrhoids; I10 Essential (primary) hypertension; Z72.0 Tobacco use
CPT/HCPCS: 74177; 80053; 80307; 81001; 83690; 85025; 96361; 96374; 96375; 99283; J7030; Q9967; A4216; J2405

== ENCOUNTER 2019-04-08 10:59 | Emergency (ER) | payer MEDICAID, SELFPAY ==
[2019-04-08 11:02] VITALS: BP 119/80; PULSE 92; RESP 20; TEMP 36.8; O2SAT 96; BMI 28.0
--- NOTE | 2019-04-08 11:29 | ED.VIS.GEN ---
History of Present Illness Chief Complaint: Alt LOC Informant: Patient, Family Current Severity: Mild Narrative: Patient presents with police and paramedics apparently was found per the family basically sleeping either on a city bench or next to a city bench the reports that basically they are homeless they have had really nowhere to rest she was in a building taking care of some type of process related to their social situation she had her eye on her and she saw him basically laid down when she came out of this building he had seemed to have trouble waking up in the police and paramedics were called and he was brought to the hospital she indicates he has not been ill in anyway he has had no fever no cough no trauma, she is been with him all day, in addition she does admit that both of them have a prior history for drug abuse but she indicates they have been sober for some time and this is not related to drug abuse, the is basically stating very bluntly that her simply tired and she wants us to let him rest Past Medical History - Allergies and Home Meds Allergies/Adverse Reactions: Allergies ciprofloxacin [From Cipro] Allergy (Verified 03/14/19 19:13) Breana Primary Care Physician: Care Physician,No Primary [Primary Care Provider] - Past Medical History: - - Prior history of drug abuse and the believes he may have hep C his health has been very good recently Surgical History: no surgical history Smoking Status: Current every day smoker - Family History Maternal Family History: Reports: No pertinent history Review of Systems General: Reports: - - Denies all as above. Denies: Chills, Fever, Sweats Eyes: Denies: Visual changes - bilaterally, Diplopia ENT: Denies: Rhinorrhea, Sore throat Cardiovascular: Denies: Chest pain, Palpitations Respiratory: Denies: Dyspnea, Cough, Dyspnea on exertion Gastrointestinal: Denies: Abdominal pain, Nausea, Vomiting, Diarrhea, Melena, Hematochezia Genitourinary: Denies: Dysuria, Hematuria, Frequency Musculoskeletal: Denies: Back pain, Extremity Pain Skin: Denies: Rash, Wounds Neurological: Denies: Headache, Weakness, Numbness Physical Exam Vital Signs/Narrative: Vital Signs Temp Pulse Resp BP Pulse Ox 04/08/19 11:02 98.2 F 92 20 H 119/80 96 General: Well nourished, Well developed, No Acute Distress, - - Is resting company the bed his vital signs are unremarkable he does appear to be asleep he is very easily arousable he wakes up he looks around was all 4 extremities moans such as like leave me alone in response to his there is no signs of head neck chest or abdominal trauma or pain Head: Normocephalic, Atraumatic Eyes: Perrl, EOMI ENT: Moist mucous membranes, No rhinorrhea Neck: Supple, Nontender Cardiovascular: Regular rate, Regular rhythm, No murmurs Respiratory: No distress, CTA bilaterally, Chest nontender Abdomen: Soft, Nontender, Nondistended, Normal bowel sounds Back: Nontender, Normal Inspection Extremities: Nontender, No edema Skin: Normal color, No rash Neurological: Alert, Oriented x3, Cranial nerves II-XII grossly intact, Normal Strength, Normal Sensation Psychological: Normal affect, Normal Mood Diagnostic/Tx/Re-eval - Medical Decision Making I had a long conversation with the I explained to we could do IV fluids screening labs etc. she really declined that indicating again that they are homeless they have been physically exhausted from the heat, the patient will not be given oral fluids food to eat we will observe him his bGT was unremarkable his EKG per assisted living associate shows sinus rhythm nothing acute and again his physical exam vital signs are unremarkable she basically wants us to provide him a respite in the air conditioning, all fluids or rehydration and nothing else Have provided the patient with food and drink he has been observed the emergency department his status is very stable at this time he will be discharged home and we will have the patient work with social science research assistant for homelessness issues Home stable Final impression Fatigue homelessness ED Disposition - Plan for ED Patient: Diagnosis: Fatigue Instructions: Altered Loc Referrals: Care Physician,No Primary [Primary Care Provider] - Additional Instructions: Follow-up with social science research assistant for further options related to homelessness
--- NOTE | 2019-04-08 12:05 | CM.ED ---
SOCIAL WORK INFORMANT: DR. MERINO REASON FOR REFERRAL: RESOURCES UPON ENTERING PATIENT'S ROOM WITH REGISTRATION, PATIENT ASLEEP IN BED, ON THE FLOOR NEXT TO BED SLEEPING. NURSING ASSISTED IN WAKING UP , PATIENT REMAINED ASLEEP. INTRODUCED ROLE AND REASON FOR REFERRAL. HOLDING ON TO SIDE OF PATIENT'S BED AND SWAYING BACK AND FORTH, CLOSING EYES. STATES SHE AND PATIENT ARE HOMELESS AND CANNOT GET HELP SHE WAS IN THE [employer] CHARGE. DISCUSSED HX OF DRUG ABUSE AND STATES SHE AND PATIENT HAVE BEEN CLEAN AND SOBER FOR 2 YEARS. ATTEMPTED TO DISCUSS LOCAL COMMUNITY RESOURCES. STATES MISS, YOU CAN'T HELP. THIS WORKER LEFT ROOM WHILE REGISTRATION SPOKE WITH . UPDATED NURSING ON THE ABOVE. THIS WORKER TO REMAIN AVAILABLE FOR ANY FURTHER NEEDS. FILIPPO GARCIA, LOCATION AND MEASUREMENT TECHNICIAN, [employer] PORTABLE MACHINE.
[2019-04-08 12:44] VITALS: BP 110/80; PULSE 76; RESP 18; O2SAT 99
--- NOTE | 2019-04-08 12:56 | ED.RN ---
PT WAS ASKED IF HE HAD EATEN ANYTHING SINCE ARRIVING. PT NODDED HIS HEAD YES. SANDWICH AND BEVERAGE THAT WAS PROVIDED WERE NOT OPENED. HE AND HIS SIGNIFICANT OTHER AT RESTING EYES CLOSED. Carlos ESTEVES RN [id number]
== END 2019-04-08 13:12 | disposition home or self-care (01) ==
LOC: ED 12:06
PROVIDERS: Emergency Provider Emergency Medicine
DX: R53.83 Other fatigue (principal); F17.200 Nicotine dependence, unspecified, uncomplicated; Z59.0 Homelessness
CPT/HCPCS: 99284

== ENCOUNTER 2019-04-25 11:12 | Inpatient (IN) | payer MEDICAID, SELFPAY ==
[2019-04-25] VITALS (11 sets, daily range): BP systolic 89–123; BP diastolic 56–80; PULSE 85–117; RESP 12–20; TEMP 36.6–36.8; O2SAT 96–99; BMI 28.9; BMI 27.8
--- NOTE | 2019-04-25 11:57 | EKG12_ITS ---
Test Reason : Blood Pressure : / mmHG Vent. Rate : 112 BPM Atrial Rate : 112 BPM P-R Int : 134 ms QRS Dur : 094 ms QT Int : 352 ms P-R-T Axes : 056 -03 039 degrees QTc Int : 480 ms Sinus tachycardia Otherwise normal ECG Confirmed by DARREL VIGIL, ADDIE ([id number]), dictionary editor WILL PRESTON ([id number]) on 04/27/2019 1:39:05 PM Referred By: DOMINIC Confirmed By:ADDIE ROJO MD
--- NOTE | 2019-04-25 11:58 | ED.DCSUM_ITS ---
History of Present Illness Chief Complaint: Chest Pain Detail of Chief Complaint: Chest pain, dizzy, back pain Informant: Patient, Significant Other Onset: Today Current Severity: Mild Maximum Severity: Moderate Narrative: Patient has been outside doing yard work in the heat the past couple days. Today he states he got chest pain rated up into his jaw and back pain. He felt lightheaded and dizzy. He had similar symptoms in the past with renal failure. Patient and are unsure of details of his history, but states he has had renal failure twice that improved after IV hydration in the hospital. Patient was told it was because of a past use of drugs. They also report a history of 2 strokes when they lived in [place] last year. states his heart is enlarged and beats faster than the normal persons. Past Medical History - Allergies and Home Meds Allergies/Adverse Reactions: Allergies ciprofloxacin [From Cipro] Allergy (Verified 04/25/19 11:12) Breana Primary Care Physician: Iza Villarreal NP-C [Primary Care Provider] - Prior records reviewed: Yes Past Medical History: - - Reviewed Surgical History: no surgical history Lives: Spouse/ Significant Other Smoking Status: Current every day smoker - Family History Maternal Family History: Reports: No pertinent history Review of Systems General: Denies: Chills, Fever Eyes: Denies: Visual changes - left, Visual changes - right ENT: Denies: Bilateral ear pain Cardiovascular: Reports: Chest pain. Denies: Palpitations Respiratory: Denies: Dyspnea, Cough Gastrointestinal: Reports: Nausea. Denies: Abdominal pain, Vomiting Genitourinary: Denies: Dysuria - Decreased urinary frequency Musculoskeletal: Reports: Myalgias, Arthralgias, Back pain Skin: Denies: Rash Neurological: Reports: Headache Endocrine: Denies: Polyuria, Polydipsia Allergy: Reports: - - Throat feels dry and tight. Denies: Uticaria, Swelling of the mouth Physical Exam Vital Signs/Narrative: Vital Signs Temp Pulse Resp BP Pulse Ox 04/25/19 11:30 99 18 93/56 L 99 04/25/19 11:13 98.0 F 117 H 16 89/60 L General: Well nourished, Well developed Head: Normocephalic ENT: Dry mucous membranes Cardiovascular: Regular rate, Regular rhythm Respiratory: No distress, CTA bilaterally Abdomen: Soft, Nontender, Hypoactive bowel sounds Back: - - Paraspinal tenderness in the lumbar region bilaterally. Extremities: Nontender, No edema Skin: Normal color, Diaphoresis Neurological: Alert, Oriented x3, - - No focal neuro deficits Psychological: Normal affect Diagnostic/Tx/Re-eval Impressions Chest X-Ray 04/25/19 12:07 IMPRESSION: Stable, nonacute portable x-ray examination of the chest. Electronically Signed: Ashu Aragon MD at 12:19 EDT , Service support , 04/25/19 12:07 Chest 1 View (Portable) [RAD] Stat Laboratory Results 04/25/19 04/25/19 04/25/19 12:20 12:20 12:20 WBC 16.4 H RBC 5.21 Hgb 15.6 Hct 47.1 MCV 90.4 MCH 29.9 MCHC 33.1 RDW Std Deviation 44.1 H RDW Coeff of [place] 13.2 Plt Count 336 MPV 9.3 Immature Gran % (Auto) 0.400 Neut % (Auto) 82.3 H Lymph % (Auto) 12.4 L [place] % (Auto) 4.6 Eos % (Auto) 0.1 Baso % (Auto) 0.2 Absolute Neuts (auto) 13.4 H Absolute Lymphs (auto) 2.03 Absolute Nucleated RBC 0.00 Nucleated RBC % 0 Sodium 134 L Potassium 3.6 Chloride 100 Carbon Dioxide 25.0 Anion Gap 9 BUN 30 H Creatinine 3.36 H Estim Creat Clear Calc 27.87 Est GFR (MDRD) Af Amer 27 L Est GFR (MDRD) Non-Af 22 L BUN/Creatinine Ratio 8.9 L Glucose 80 Calcium 9.6 Total Creatine Kinase 350 H Cancelled Troponin I 0.032 - EKG Initial EKG Interpretation: Sinus Tachycardia - Sinus tachycardia at 112 with no sign of acute ischemia. - Medical Decision Making Patient was given IV fluids here. Heart rate is now in the 80s and blood pressure is 106/63. Patient will be given a small dose of fentanyl for back pain. His creatinine has increased from 0.99 on March 14 and is 3.36 today. He will be admitted for hydration and acute renal failure. ED Disposition - Plan for ED Patient: Disposition: Acute Care Hospital [facility] Diagnosis: Acute renal failure Referrals: Iza Villarreal NP-C [Primary Care Provider] -
[2019-04-25] MEDS: 0.9% Normal Saline 1,000 ML 1000 ML IV ×2 (12:00→12:30)
--- NOTE | 2019-04-25 12:07 | RAD_ITS ---
STUDY: X-RAY CHEST REASON FOR EXAM: Male, 38 years old. Chest pain TECHNIQUE: AP COMPARISON: 03/03/2019 FINDINGS: EKG leads project over the chest. The lungs are clear and expanded. There is no demonstrated pleural abnormality. Normal size heart. Normal mediastinum and jett. Normal visualized pulmonary arteries. Normal visualized aortic arch and descending thoracic aorta. Normal visualized thoracic spine. Normal visualized ribs, clavicles, and shoulders. There is no demonstrated abnormality of the visualized soft tissue structures of the upper abdomen. RAD/Chest 1 View (Portable) IMPRESSION: Stable, nonacute portable x-ray examination of the chest. Electronically Signed: Ashu Aragon MD at 12:19 EDT , Service support ,
[2019-04-25 12:29] LABS: Absolute Lymphocyte Count 2.03 X10^3/uL (0.83-4.51); Absolute Neutrophil Count 13.4 X10^3/uL (2.0-7.7); Basophil# 0.04 X10^3/uL; Basophil% 0.2 % (0-1); Eosinophil# 0.02 X10^3/uL; Eosinophils% 0.1 % (0-5); Hematocrit 47.1 % (40-54); Hemoglobin 15.6 g/dL (13.0-16.5); Lymphocyte # 2.03 X10^3/ul (4.0); Lymphocyte % 12.4 % (19-41); Mean Corp Hgb Conc 33.1 g/dL (32-36); Mean Corpuscular Hgb 29.9 pg (27.0-32.0); Mean Corpuscular Volume 90.4 fL (80-94); Mean Platelet Vol. 9.3 fl (6.2-12.0); Monocyte# 0.76 X10^3/uL; Monocyte% 4.6 % (0-10); NRBC Flagged by Analyzer 0 % (0-5); Neutrophil # 13.44 X10^3/uL (2.7-7.7); Neutrophil % 82.3 % (47-70); Platelet Count 336 K/mm3 (150-450); RBC Distribution Width CV 13.2 % (11.6-14.6); RBC Distribution Width SD 44.1 fl (35.1-43.9); Red Blood Count 5.21 M/mm3 (4.6-6.2); White Blood Count 16.4 K/mm3 (4.4-11.0)
[2019-04-25 12:51] LABS: Anion Gap 9 (5-15); BUN 30 mg/dL (7-18); BUN/Creat Ratio 8.9 RATIO (10-20); CPK Total, Creatine Kinase 350 U/L (39-308); Calcium,Total 9.6 mg/dL (8.5-10.1); Chloride 100 mmol/L (98-107); Creatinine, Serum 3.36 mg/dL (0.70-1.30); EST Glomerular Filtration Rate 22 mL/min (>60); Est Glom Filt Rate - Afr Amer 27 mL/min (>60); Estimated Creatinine Clearance 27.87 ml/min; Glucose 80 mg/dL (74-106); Potassium 3.6 mmol/L (3.5-5.1); Sodium Level 134 mmol/L (136-145)
--- NOTE | 2019-04-25 13:13 | PCM.HP.STD ---
Problem List (1) DORINA (acute kidney injury) Status: Acute (2) Hyponatremia Status: Acute (3) Hypotension Status: Acute Qualifiers: Hypotension type: unspecified hypotension type Qualified Code(s): I95.9 - Hypotension, unspecified (4) Rhabdomyolysis Status: Acute Qualifiers: Encounter type: initial encounter (5) HTN (hypertension) Status: Chronic Qualifiers: Hypertension type: essential hypertension Qualified Code(s): I10 - Essential (primary) hypertension (6) Tobacco use Status: Chronic (7) Polysubstance abuse Status: Resolved History of Present Illness Date of Admission: 04/25/19 Chief Complaint: Chest pain The patient is a 38 y/o M w/ PMHx: History Former EtOH Abuse (Sober x 6 years), History of Polysubstance abuse (Clean x 3 years), Tobacco use, HTN who presents to the [facility] ED on 04/25/19 with onset lightheadedness, dizziness, midsternal chest discomfort described as a heaviness rated 3-6 out of 10, currently improved to 1 out of 10 which he notes at that time had radiated to bilateral neck as well as to his back and lumbar back with additional history of mild intermittent right lower quadrant abdominal discomfort as well as right flank discomfort with no specific dysuria but noted decreased urine output over the last 2 days. 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 Work-up in the ED included T 98, heart rate initially 117, BP initially 89/60, respiratory rate 16, 99% on room air--> heart rate 90, BP 106/60, CBC with WBC 16.4, hemoglobin 15.6, platelet 336 with left shift, BMP with sodium 134, BUN/creatinine 30/3.36, troponin 0 0.032, total creatinine kinase 350, chest x-ray with no acute cardio primary findings, EKG with sinus tachycardia with no acute evidence of ischemia. In the ED patient ministered normal saline aggressive hydration as well as fentanyl 25 mcg IV x1. Bladder scan obtained in the ED following discussion with ED physician and notable for less than 200 cc. Past Medical History Past Medical History (Chronic Problems): Chronic Problems (Last Updated 01/22/19 @ 11:56 by Sandhya Palmer) HTN (hypertension) (Chronic) Tobacco use (Chronic) history of head trauma (Chronic) Medical History: Medical History (Last Updated 01/22/19 @ 11:56 by Sandhya Palmer) Hypertension I10 Allergies ciprofloxacin [From Cipro] Allergy (Verified 04/25/19 11:12) Hives Home Medications: Ambulatory Orders Medication Instructions Recorded Lisinopril 20 mg PO DAILY 12/22/18 Surgical History: - - Left clavicular surgery. Psychiatric History: No pertinent psych hx Lives: Spouse/ Significant Other Smoking Status: Current every day smoker - She currently smokes 1/2 pack/day cigarette tobacco usage since he was 16 years old. Tobacco Use: Cigarettes Alcohol: Sober - Patient has been sober x6-year. Drugs: - - Patient has been clean x 3 years with prior to this usage of cannabis, methamphetamine, heroin which she noted to have been started. - *Family History Maternal History Items: Hypertension Paternal History Items: - - Patient states he does not know his paternal family history. Review of Systems Constitutional: Reports: Malaise, Weakness, Fatigue. Denies: Chills, Fever, Weight Change HEENT: Reports: - - Lightheaded, dizzy.. Denies: Head Aches, Sinus Congestion, Sinus Drainage Cardiovascular: Reports: Chest Pain, Chest Pressure, Light Headedness. Denies: Orthopnea, Palpitations, Syncope Respiratory: Denies: Cough, Shortness of breath at rest, Sputum production Gastrointestinal: Reports: Abdominal Pain. Denies: Nausea, Vomiting Genitourinary: Denies: Dysuria Musculoskeletal: Reports: Back Pain, Neck Pain. Denies: Joint Pain, Joint Tenderness Skin: Denies: Rash, Wounds Neurological: Denies: Numbness, Tingling, Focal weakness Psychiatric: Denies: Anxiety, Depression, Homicidal Ideations, Suicidal Ideations Hematologic/ Lymphatic: Denies: Easy Bruising, Easy Bleeding VTE Information - Inpt Only VTE Present on Admission: No VTE Mechan Device Prophylaxis: SCD's VTE Pharm Prophylaxis ordered?: Yes Patient Problems: Active and Suspected Problems (Last Updated 01/22/19 @ 11:56 by Sandhya Palmer) Acute renal failure (Acute) DORINA (acute kidney injury) (Acute) Hyponatremia (Acute) Hypotension (Acute) Rhabdomyolysis (Acute) Subjective: Patient seated upright in ED, fatigued appearance, no acute distress, denies any current chest discomfort and notes has improved since initial presentation including also flank, cervical and lumbar back pain as well as abdominal discomfort. Objective: Physical Examination: General: awake, alert, oriented x 3 and cooperative, seated upright in the ED bed in no apparent distress, notes improved discomfort since initial presentation. Skin: Extremely davis skin color with noted progression of automobile rental agent, turgor, no icterus, cyanosis. HEENT: AT/NC, EOMI, PERRLA, dry MM, no carotid bruits or JVD noted. Lungs: CTA bilaterally, moderate effort, mild decrease BL bases, occasional expiratory wheezing and primarily posterior lung agustin, no rales or rhonchi. Heart: Improved, regular rate and rhythm; no gallop, rub audible. Abdomen: soft, unable to elicit discomfort with palpation to the abdomen nor palpation of the flank regions, ND, normal BS, no HSM. Extremities: no cyanosis, clubbing, or edema. Neurological: patient awake, alert, oriented x 3; cognitive function intact; pupils equally reactive to light and accomodation; cranial nerves II-XII grossly normal, moving all 4 extremities, no focal deficits, strength improving, moderately global decrease secondary to acute presentation. Psychiatric: affect appears normal, no acute evidence of depressive or anxiety feelings. - Physical Exam Vital Signs Temp Pulse Resp BP Pulse Ox 98.0 F 90 20 H 106/63 98 04/25/19 11:13 04/25/19 13:05 04/25/19 13:05 04/25/19 13:05 04/25/19 13:05 Oxygen Delivery Method Room Air Weight: 184 lb 11.958 oz Body Mass Index (BMI) 28.9 Laboratory Tests Past 24 Hrs 04/25/19 04/25/19 04/25/19 12:20 12:20 12:20 WBC 16.4 H RBC 5.21 Hgb 15.6 Hct 47.1 MCV 90.4 MCH 29.9 MCHC 33.1 RDW Std Deviation 44.1 H RDW Coeff of Macie 13.2 Plt Count 336 MPV 9.3 Immature Gran % (Auto) 0.400 Neut % (Auto) 82.3 H Lymph % (Auto) 12.4 L [place] % (Auto) 4.6 Eos % (Auto) 0.1 Baso % (Auto) 0.2 Absolute Neuts (auto) 13.4 H Absolute Lymphs (auto) 2.03 Absolute Nucleated RBC 0.00 Nucleated RBC % 0 Sodium 134 L Potassium 3.6 Chloride 100 Carbon Dioxide 25.0 Anion Gap 9 BUN 30 H Creatinine 3.36 H Estim Creat Clear Calc 27.87 Est GFR (MDRD) Af Amer 27 L Est GFR (MDRD) Non-Af 22 L BUN/Creatinine Ratio 8.9 L Glucose 80 Calcium 9.6 Total Creatine Kinase 350 H Cancelled Troponin I 0.032 Assessment/Plan All Active Problems (Last Updated 01/22/19 @ 11:56 by Sandhya Palmer) Acute renal failure (Acute) DORINA (acute kidney injury) (Acute) Hyponatremia (Acute) Hypotension (Acute) Rhabdomyolysis (Acute) Polysubstance abuse (Resolved) Pilonidal cyst (Acute) The patient is a 38 y/o M w/ PMHx: History Former EtOH Abuse (Sober x 6 years), History of Polysubstance abuse (Clean x 3 years), Tobacco use, HTN who presents to the [facility] ED on 04/25/19 with onset lightheadedness, dizziness, midsternal chest discomfort described as a heaviness rated 3-6 out of 10, currently improved to 1 out of 10 which he notes at that time had radiated to bilateral neck as well as to his back and lumbar back with additional history of mild intermittent right lower quadrant abdominal discomfort as well as right flank discomfort with no specific dysuria but noted decreased urine output over the last 2 days. (1) Atypical Flank (Right) and Chest Pain: EKG in ED sinus tachycardia with no acute evidence of ischemia, CXR w/ no acute cardiopulmonary findings, initial trop 0.032. Will admit to PCU to be cautious, place on a monitored bed to assure no acute myocardial infarction with serial cardiac enzymes and EKGs. Current presentation possibly secondary to dehydration with mild rhabdomyolysis as well as noted leukocytosis of unclear etiology with acute kidney injury. Will obtain UDS, urinalysis as noted, urine culture, in addition will obtain CT abdomen pelvis stone protocol in case etiology for acute atypical chest and flank discomfort with concurrent DORINA as noted. ASA, NG, morphine. FLP in AM. Mag pending. (2) Acute kidney injury: Secondary to suspected poor oral intake in addition to nephrotoxic regimen. Admission BUN/Cr 30/3.36, prior baseline creatinine noted to be 0.9-1.0. Will hydrate, hold nephrotoxic medications and repeat chemistry in AM. Given unclear prior DORINA history with episodes which he attributes to his past drug acute, will obtain FeNa and CT A/P stone protocol as well as renal US pending timeline of imaging ability, consult Nephrology. UA, UCx requested. Bladder scan requested in the ED to assure not retaining. (3) Hyponatremia, hypovolemic: Admission sodium 134, given acute kidney injury as well as acute presentation suspected hypovolemic presentation, aggressively hydrating, trend BMP. (4) Rhabdomyolysis, mild: Admission presentation with T CK 350, continue aggressive hydration as noted, trend is needed, hepatic profile pending. (5) Leukocytosis, unclear etiology: Presentation with elevated WBC 16.4 with notable L shift, unclear etiology, potential dehydration as noted given DORINA, hydrating aggressively, repeat CBC in AM, UA/UCx pending given DORINA, CXR without acute findings. (6) Hypotension: Secondary to acute presentation, #1, #2, #3, #4, continue aggressive hydration, trend BMP, maintain on telemetry as noted. (7) Hypertension: Given presentation with acute kidney injury we will hold home lisinopril regimen in addition to concurrently noted hypotension, IV PRN hydralazine in interim with regimen adjustments further as needed. (8) Tobacco Abuse: Encouraged cessation, inpatient consultation per RT, NR if desired. (9) Polysubstance Abuse History (EtOH, Meth, Heroine snorted) w/ History of Hepatitis C: Patient notes that he has been clean and sober for many years, urine drug screen pending, encourage continued sobriety and clean status and given this if UDS is unremarkable owing also to the fact he was given fentanyl in the ED he is currently appropriate for hep C treatment. Upon discharge will refer to GI versus ID to initiate. (10) Tobacco Abuse: Encouraged cessation, inpatient consultation per RT, NR if desired. (11) DVT Prophylaxis: SCDs, heparin. Code Visit Inpatient E&M: 41575 Init Hosp L3
[2019-04-25] MEDS: fentaNYL 100 MCG/2 ML Ampul 25 MCG IV (13:34)
[2019-04-25 13:37] LABS: AST(SGOT) 95 U/L (15-37); Alanine Aminotransfer ALT/SGPT 329 U/L (16-61); Albumin, Serum 4.8 g/dL (3.2-5.0); Alkaline Phosphatase 148 U/L (45-117); Bilirubin, Direct 0.23 mg/dL (0.00-0.30); Globulin 4.5 g/dL (2.2-4.2); Protein, Total 9.3 g/dL (6.4-8.2)
--- NOTE | 2019-04-25 13:58 | CT_ITS ---
STUDY: CT ABDOMEN AND PELVIS WITHOUT CONTRAST REASON FOR EXAM: Male, 38 years old. Right flank pain, elevated creatinine, acute renal failure RADIATION DOSAGE (If Supplied By Facility): CTDIvol = ( 7.79 ) mGy, DLP = ( 402.83 ) mGycm TECHNIQUE: Transaxial images were obtained from the dome of the diaphragm to the symphysis pubis without oral contrast, and without intravenous contrast. Sagittal and coronal images were reconstructed. Individualized dose optimization techniques were used for this CT. COMPARISON: 03/14/2019 FINDINGS: Mild fibrotic scarring in the right lung base. The visualized portions of the heart are within normal limits. Normal liver. Normal gallbladder and extrahepatic biliary system. There are multiple benign calcified granulomata of the spleen. Normal pancreas. Normal bilateral adrenal glands. Normal right kidney. Normal left kidney. Normal visualized stomach. Normal small intestine. Normal colon. The appendix is visualized and appears normal. Normal abdominal aorta. Normal inferior vena cava. Normal retroperitoneum. Normal urinary bladder. There are prostatic calcifications. There is a small umbilical hernia containing fat. There are diffuse degenerative changes of the visualized lumbar spine. An old fracture or accessory ossicle of the right L3 transverse process is similar. Anterior wedge compression of T12 is similar, chronic or congenital. CT/Abdomen/Pelvis without Cont IMPRESSION: 1. No hydronephrosis. Electronically Signed: Ashu Aragon MD at 15:48 EDT , Service support ,
--- NOTE | 2019-04-25 13:58 | US_ITS ---
STUDY: RENAL ULTRASOUND - COMPLETE REASON FOR EXAM: Male, 38 years old. Acute kidney dysfunction/failure TECHNIQUE: Ultrasound evaluation of the kidneys was performed with real-time and static fraga-scale imaging. COMPARISON: None. FINDINGS: RIGHT KIDNEY: Normal location of the right kidney, which is normal in size. The right kidney measures 12.0 x 6.5 x 5.7 cm. There is a normal cortex of the right kidney. The renal cortex measures 1.2 cm. There is no right renal mass or cyst. There are no right renal calculi. There is no right hydronephrosis. DISTAL RIGHT URETER: There is non-visualization of the distal right ureter. There is no demonstrated right ureterovesical junction calculus. There is a visualized right ureteral jet. LEFT KIDNEY: Normal location of the left kidney, which is normal in size. The left kidney measures 12.3 x 5.2 x 5.3 cm. There is a normal cortex of the left kidney. The renal cortex measures 1.3 cm. There is no left renal mass or cyst. There are no left renal calculi. There is no left hydronephrosis. DISTAL LEFT URETER: There is non-visualization of the distal left ureter. There is no demonstrated left ureterovesical junction calculus. There is a visualized left ureteral jet. BLADDER: The distended urinary bladder has a volume of 111 ml. There is a normal wall thickness of the distended urinary bladder. There is no demonstrated mass within the urinary bladder. There are no demonstrated bladder calculi. US/Kidney and Bladder IMPRESSION: No hydronephrosis. Electronically Signed: Ashu Aragon MD at 15:42 EDT , Service support ,
--- NOTE | 2019-04-25 13:58 | EKG12_ITS ---
Test Reason : CP Blood Pressure : / mmHG Vent. Rate : 080 BPM Atrial Rate : 080 BPM P-R Int : 180 ms QRS Dur : 092 ms QT Int : 380 ms P-R-T Axes : 062 009 036 degrees QTc Int : 438 ms Normal sinus rhythm Incomplete right bundle branch block Borderline ECG When compared with ECG of 26-APR-2019 06:25, MANUAL COMPARISON REQUIRED, DATA IS UNCONFIRMED Confirmed by DARREL VIGIL, ADDIE ([id number]), publishing editor WILL PRESTON ([id number]) on 04/28/2019 1:55:29 PM Referred By: ESTER Confirmed By:ADDIE ROJO MD
[2019-04-25] MEDS: 0.9% Normal Saline 1,000 ML 150 ML IV (14:05)
[2019-04-25 14:17] LABS: Magnesium 2.7 mg/dL (1.6-2.6)
[2019-04-25] MEDS: 0.9% NaCl Peripheral Flush Adult/Peds IV ×2 (14:50→19:53)
[2019-04-25] MEDS: Morphine 2 MG/ML Syringe IV (14:50)
[2019-04-25] MEDS: HYDROcodone Bitartrate/Apap 5/325 Tablet PO ×2 (16:02→22:10)
[2019-04-25 16:52] LABS: Red Blood Cells-Urine 0 SEEN /hpf (0-5)
[2019-04-25 17:02] LABS: Color, Urine Yellow (Yellow); Glucose, Dipstick Normal (Normal); Ketone-Dipstick 5 mg/dl (Negative); Leukocyte Esterase-Dipstick 25 /ul (Negative); Nitrite-Dipstick Negative (Negative); Occult Blood-Urine 10 /ul (Negative); Protein-Dipstick 100 mg/dl (Negative); Urine Bilirubin Dipstick Negative (Negative); Urine Clarity Clear (Clear); Urine Urobilinogen 1 mg/dl (Normal)
[2019-04-25 17:12] LABS: White Blood Cells 5-10 SEEN /hpf (0-5)
[2019-04-25 17:13] LABS: Bacteria 1+ /hpf (None Seen); Fine Granular Cast- Urine 0-5 SEEN /lpf (0-5); Hyaline Cast 0-5 SEEN /lpf (0-5); Mucous, Urine 3+ /hpf (<or=2+); Squamous Epithelial Cells - UA 10-25 SEEN /hpf (0-5)
[2019-04-25 17:19] LABS: Urine Sodium 125 mmol/L (Not Establ.)
[2019-04-25 17:40] LABS: Amphetamine Urine VISTA POSITIVE (<1000 ng/mL); Barbiturate Urine VISTA NEGATIVE (< 200 ng/mL); Benzodiazepine Urine VISTA NEGATIVE (< 200 ng/mL); Cocaine Urine VISTA NEGATIVE (< 300 ng/mL); Ecstacy Urine VISTA POSITIVE (< 500 ng/mL); Methadone Urine VISTA NEGATIVE (< 300 ng/mL); PCP Urine VISTA NEGATIVE (< 25 ng/mL); THC Urine VISTA NEGATIVE (< 50 ng/mL); Vista UDS pH Range 5
--- NOTE | 2019-04-25 20:56 | NURSING ---
Around 20:45, this RN went to pt room. Neither pt or nor his or daughter were in room. Charge nurse notified. This RN, SERA Sanchez, and MACK Rosado began searching the unit. bulk plant manager notified warehouse associate and security. Security states pt is down sitting near the hospital [employer]. Security to try to bring pt back to PCU.
[2019-04-25] MEDS: Heparin Injection (Vial) 5,000 UNIT/ML VIAL 5000 UNIT SC (22:12)
[2019-04-26] MEDS: 0.9% NaCl Peripheral Flush Adult/Peds IV (01:22)
[2019-04-26] MEDS: 0.9% Normal Saline 1,000 ML 150 ML IV ×4 (02:11→23:10)
[2019-04-26 02:52] VITALS: PULSE 102
[2019-04-26 03:31] VITALS: BP 145/74; PULSE 95; RESP 14; TEMP 36.7; O2SAT 97
[2019-04-26 04:56] VITALS: BP 139/86
[2019-04-26] MEDS: HYDROcodone Bitartrate/Apap 5/325 Tablet PO (04:58)
--- NOTE | 2019-04-26 05:42 | NURSING ---
PRESCHOOL ASSISTANT states that pt is upset. This RN and lime slaker in to pt room. Explained to patient and his that he is not able to go outside per policy as he is wearing a telemetry box. Pt and provided with copy of patient bill of rights as requested. Pt and given opportunity to ask questions. No further needs identified at this time.
--- NOTE | 2019-04-26 05:55 | EKG12_ITS ---
Test Reason : AM EKG Blood Pressure : / mmHG Vent. Rate : 093 BPM Atrial Rate : 093 BPM P-R Int : 166 ms QRS Dur : 098 ms QT Int : 376 ms P-R-T Axes : 061 010 026 degrees QTc Int : 467 ms Normal sinus rhythm Incomplete right bundle branch block Borderline ECG When compared with ECG of 25-APR-2019 13:57, MANUAL COMPARISON REQUIRED, DATA IS UNCONFIRMED Confirmed by DARREL VIGIL, ADDIE ([id number]), staff editor WILL PRESTON ([id number]) on 04/28/2019 1:57:29 PM Referred By: ESTER Confirmed By:ADDIE ROJO MD
--- NOTE | 2019-04-26 06:51 | PN_ITS ---
Patient Problems: Active and Suspected Problems (Last Updated 01/22/19 @ 11:56 by Sandhya Palmer) Acute renal failure (Acute) DORINA (acute kidney injury) (Acute) Hyponatremia (Acute) Hypotension (Acute) Rhabdomyolysis (Acute) Subjective: Patient with no acute events overnight per self and per nursing report. Patient up and moving this morning and denies any complaints. He has had minimal urine output and discuss Luque catheter but very adamant that he would prefer to continue to have close monitoring and states that as soon as he needs to go he will contact nursing staff. Discussed patient presentation and his urine drug screen at length with methamphetamine evident and he now admits that he has been still using. Discussed that usage of this, increased activity, outside exposure in the sun and poor oral intake likely responsible for his acute kidney injury and current presentation. Patient remains amenable to nephrology evaluation as well as continued aggressive fluid hydration and continued renal function trending. Possible discharge to home in a.m. tomorrow. Patient denies any further chest discomfort and following discussion plan to transition off telemetry monitoring to MedSurg status. Patient denies fevers, chills, nausea, emesis, abdominal pain, chest pain or dyspnea. Objective: Physical Examination: General: awake, alert, oriented x 3 and cooperative, seated upright in the bed, NAD, initially walking around in the room. Skin: Extremely davis skin color with noted progression of lens dotter, turgor, no icterus, cyanosis. HEENT: AT/NC, EOMI, PERRLA, improved MMM. Lungs: CTA bilaterally, moderate effort, mild decrease BL bases, occasional expiratory wheezing and primarily posterior lung agustin, no rales or rhonchi. Heart: Regular rate and rhythm; no gallop, rub audible. Abdomen: soft, NTTP, ND, normal BS, no HSM. Extremities: no cyanosis, clubbing, or edema. Neurological: patient awake, alert, oriented x 3; cognitive function intact; pupils equally reactive to light and accomodation; cranial nerves II-XII grossly normal, moving all 4 extremities, no focal deficits, strength resolved, normal. Psychiatric: affect appears normal, no acute evidence of depressive or anxiety feelings. Vitals/I&O's: Vital Signs Temp Pulse Resp BP Pulse Ox 98.1 F 95 14 139/86 H 97 04/26/19 03:31 04/26/19 03:31 04/26/19 03:31 04/26/19 04:56 04/26/19 03:31 Oxygen Delivery Method Room Air Weight: 177 lb 7.554 oz Body Mass Index (BMI) 27.8 Intake and Output for Last 24 Hours 04/24/19 04/25/19 04/26/19 23:59 23:59 23:59 Intake Total 1991 Output Total 0 / 0 0 / 0 Balance 1991 Laboratory Results 04/25/19 12:20: WBC 16.4 H, RBC 5.21, Hgb 15.6, Hct 47.1, MCV 90.4, MCH 29.9, MCHC 33.1, RDW Std Deviation 44.1 H, RDW Coeff of Macie 13.2, Plt Count 336, MPV 9.3, Immature Gran % (Auto) 0.400, Neut % (Auto) 82.3 H, Lymph % (Auto) 12.4 L, [place] % (Auto) 4.6, Eos % (Auto) 0.1, Baso % (Auto) 0.2, Absolute Neuts (auto) 13.4 H, Absolute Lymphs (auto) 2.03, Absolute Nucleated RBC 0.00, Nucleated RBC % 0 04/25/19 12:20: Sodium 134 L, Potassium 3.6, Chloride 100, Carbon Dioxide 25.0, Anion Gap 9, BUN 30 H, Creatinine 3.36 H, Estim Creat Clear Calc 27.87, Est GFR (MDRD) Af Amer 27 L, Est GFR (MDRD) Non-Af 22 L, BUN/Creatinine Ratio 8.9 L, Glucose 80, Calcium 9.6, Total Creatine Kinase 350 H, Troponin I 0.032 04/25/19 12:20: Total Creatine Kinase Cancelled 04/25/19 12:20: Total Bilirubin 1.00, Direct Bilirubin 0.23, AST 95 H, ALT 329 H , Alkaline Phosphatase 148 H, Total Protein 9.3 H, Albumin 4.8, Globulin 4.5 H 04/25/19 12:20: Magnesium 2.7 H 04/25/19 15:30: Troponin I < 0.015 04/25/19 16:32: Urine Opiates Screen POSITIVE H, Urine Methadone Screen NEGATIVE, Ur Barbiturates Screen NEGATIVE, Ur Phencyclidine Scrn NEGATIVE, Ur Amphetamines Screen POSITIVE H, U Methamphetamin-MDMA POSITIVE H, U Benzodiazepines Scrn NEGATIVE, Urine Cocaine Screen NEGATIVE, U Cannabinoids Screen NEGATIVE, Ur Drug Screen Comment 04/25/19 16:32: Urine Color Yellow, Urine Clarity Clear, Urine pH 5.0, Ur Specific [place] 1.030, Urine Protein 100 H, Urine Glucose (UA) Normal, Urine Ketones 5 H, Urine Occult Blood 10 H, Urine Nitrite Negative, Urine Bilirubin Negative, Urine Urobilinogen 1 H, Ur Leukocyte Esterase 25 H, Urine RBC 0 SEEN, Urine WBC 5-10 SEEN, Ur Squamous Epith Cells 10-25 SEEN, Urine Bacteria 1+, Hyaline Casts 0-5 SEEN, Fine Granular Casts 0-5 SEEN, Urine Mucus 3+ 04/25/19 16:32: Urine Creatinine 432.00 04/25/19 16:32: Ur Random Sodium 125 04/25/19 18:11: Troponin I < 0.015 Current Medications Acetaminophen (Tylenol) 650 mg PO Q6H PRN PRN PRN Reason: Non-cardiac pain (mod-severe) Hydrocodone Bitart/Acetaminophen (Onsted 5mg-325mg) 1 - 2 tablet PO Q6H PRN PRN PRN Reason: MOD-SEVERE PAIN (4-10/10) Last Admin: 04/26/19 04:58 Dose: 2 tablet Documented by: Al Hydroxide/Mg Hydroxide (Mylanta Ii) 15 - 30 ml PO Q4H PRN PRN PRN Reason: INDIGESTION Albuterol Sulfate (Ventolin Aerosols) 2.5 mg INHALATION Q2H PRN PRN PRN Reason: dyspnea, wheezing Aspirin (Ecotrin) 81 mg PO DAILY@0800 [facility] Dextrose (D50w Syringe) 0 gm IV X1 PRN; Protocol PRN Reason: Hypoglycemia Glucagon () 1 mg IM .X1 PRN PRN Reason: Hypoglycemia Guaifenesin (Robitussin) 20 ml PO Q4H PRN PRN PRN Reason: COUGH Heparin Sodium (Porcine) (Heparin Na) 5,000 unit SC Q12 [facility] Last Admin: 04/25/19 22:12 Dose: 5,000 unit Documented by: Hydralazine HCl (Apresoline Iv) 10 mg IV Q4H PRN PRN PRN Reason: SBP > 160 Sodium Chloride () 1,000 mls @ 150 mls/hr IV .Q6H40M MADAN Last Admin: 04/26/19 02:11 Dose: 150 mls/hr Documented by: Magnesium Hydroxide (Milk Of Magnesia) 30 ml PO DAILY PRN PRN Reason: Constipation Melatonin (Melatonin) 3 mg PO QHS PRN PRN PRN Reason: INSOMNIA Morphine Sulfate () 1 - 2 mg IV Q4H PRN PRN PRN Reason: PAIN Last Admin: 04/25/19 14:50 Dose: 2 mg Documented by: Nicotine (Nicoderm Cq (Pbkc)) 14 mg TRANSDERM. DAILY MADAN Last Admin: 04/25/19 14:49 Dose: 14 mg Documented by: Nitroglycerin (Nitrostat) 0.4 mg SUBLINGUAL Q5M PRN PRN Reason: CARDIAC/CHEST PAIN Ondansetron HCl (Zofran) 4 mg IV Q8H PRN PRN PRN Reason: NAUSEA/VOMITING Psyllium Hydrophilic Mucilloid (Metamucil) 1 packet PO DAILY PRN PRN PRN Reason: Constipation Senna/Docusate Sodium (Senokot-S, Adrianne-Colace) 2 tablet PO BID PRN PRN PRN Reason: Constipation Sodium Chloride () 10 - 40 ml IV UD PRN PRN Reason: SALINE FLUSH Last Admin: 04/26/19 01:22 Dose: 10 ml Documented by: Throat Lozenges (Cepacol Sore Throat Lozenge) 1 lozenge MUCOUS MEM Q2H PRN PRN PRN Reason: Sore Throat/Cough Medical Necessity - Tobacco Use Smoking Status: Current every day smoker Tobacco Use: Cigarettes Assessment/Plan All Active Problems (Last Updated 01/22/19 @ 11:56 by Sandhya Palmer) Acute renal failure (Acute) DORINA (acute kidney injury) (Acute) Hyponatremia (Acute) Hypotension (Acute) Rhabdomyolysis (Acute) Polysubstance abuse (Resolved) Pilonidal cyst (Acute) The patient is a 38 y/o M w/ PMHx: History Former EtOH Abuse (Sober x 6 years), History of Polysubstance abuse (Clean x 3 years), Tobacco use, HTN who presents to the [facility] ED on 04/25/19 with onset lightheadedness, dizziness, midsternal chest discomfort described as a heaviness rated 3-6 out of 10, currently improved to 1 out of 10 which he notes at that time had radiated to bilateral neck as well as to his back and lumbar back with additional history of mild intermittent right lower quadrant abdominal discomfort as well as right flank discomfort with no specific dysuria but noted decreased urine output over the last 2 days. (1) Atypical Flank (Right) and Chest Pain: EKG in ED sinus tachycardia with no acute evidence of ischemia, CXR w/ no acute cardiopulmonary findings, initial trop 0.032. Admitted to PCU, no marked events on telemetry monitoring, unremarkable serial cardiac enzymes and EKGs. Suspect current presentation likely secondary to polysubstance abuse as completely resolved prior complaints of flank and disc chest discomfort. UDS as noted with positive amphetamine, methamphetamine and opiates although was given fentanyl in the ED. Acute kidney injury improving. Given unlikely cardiac etiology, likely musculoskeletal with concurrent mild rhabdomyolysis secondary to high activity in the setting of poor oral intake and exposure will discontinue quality assurance monitor body monitoring and transition to medical surgical status. Mag 2.7, FLP not marked appearing. (2) Acute kidney injury: Secondary to poor oral intake, exposure, polysubstance abuse as well as home medication lisinopril regimen. Admission BUN/Cr 30/3.36, prior baseline creatinine noted to be 0.9-1.0. Hydrated aggressively, held nephrotoxic medications, renal ultrasound obtained which was noted to be unremarkable, CT abdomen pelvis with stone protocol obtained which was noted to be unremarkable, FeNa 0.73% which is consistent with clinical picture. Nephrology consulted and pending. UOP still not appropriate but renal function improving and expect improvement in UOP to follow. 04/26/19 BUN/Cr 31/1.47. (3) Hyponatremia, hypovolemic: Admission sodium 134, given acute kidney injury as well as acute presentation suspected hypovolemic presentation, aggressively hydrating, trend BMP, 04/26/19 Na 141. (4) Rhabdomyolysis, mild: Admission presentation with TCK 350, likely secondary to poor intake, exposure, methamphetamine usage was extreme activity, continued aggressive hydration as noted, repeat TCK 378, hepatic profile w/ elevated AST/ALT 95/329, Alk phos 148 with repeat mildly elevated, 04/26/19 AST/ALT 240/123. Liver US pending, likely secondary to polysubstance abuse and mild rhabdomyolysis in the setting of underlying hepatitis C. Hepatitis profile pending in case of co-infection now. (5) Leukocytosis, unclear etiology: Presentation with elevated WBC 16.4 with notable L shift, unclear etiology, potential dehydration as noted given DORINA, hydrating aggressively, repeat CBC in AM resolved w/ 04/26/19 CBC w/ WBC 10 with resolved L shift. Admission CXR without acute findings. (6) Hypotension: Secondary to acute presentation, #1, #2, #3, #4, continue aggressive hydration, trend BMP, improved BP, clinically stable, transition off telemetry as noted. (9) Polysubstance Abuse History (EtOH, Meth, Heroine snorted) w/ History of Hepatitis C: Patient notes that he has been clean and sober for many years, UDs obtained w/ + amphetamine, methamphetamine and opiates however he has recently been given fentanyl in the ED. Patient now admitting that he is continued to use amphetamines. Discussed that this is likely the etiology for his current presentation with case management consultation pending. Given his active usage discussed that he would need to be clean and sober with documented attendance meetings for initiation of treatment hepatitis C. Admit hepatic profile w/ elevated AST/ALT 95/329, Alk phos 148 with repeat mildly elevated, 04/26/19 AST/ALT 240/123. Liver US pending, likely secondary to polysubstance abuse and mild rhabdomyolysis in the setting of underlying hepatitis C. Hepatitis profile pending in case of co-infection now. (7) Hypertension: Given presentation with acute kidney injury holding lisinopril regimen, IV PRN hydralazine. (10) Tobacco Abuse: Encouraged cessation, inpatient consultation per RT, NR if desired. (11) DVT Prophylaxis: SCDs, heparin. Code Visit Inpatient E&M: 53492 Subs Hosp L2
[2019-04-26 07:10] LABS: Absolute Lymphocyte Count 2.66 X10^3/uL (0.83-4.51); Absolute Neutrophil Count 6.4 X10^3/uL (2.0-7.7); Basophil# 0.05 X10^3/uL; Basophil% 0.5 % (0-1); Eosinophil# 0.21 X10^3/uL; Eosinophils% 2.1 % (0-5); Hematocrit 40.9 % (40-54); Hemoglobin 13.6 g/dL (13.0-16.5); Lymphocyte # 2.66 X10^3/ul (4.0); Lymphocyte % 26.6 % (19-41); Mean Corp Hgb Conc 33.3 g/dL (32-36); Mean Corpuscular Hgb 30.1 pg (27.0-32.0); Mean Corpuscular Volume 90.5 fL (80-94); Mean Platelet Vol. 9.6 fl (6.2-12.0); Monocyte# 0.61 X10^3/uL; Monocyte% 6.1 % (0-10); NRBC Flagged by Analyzer 0 % (0-5); Neutrophil # 6.43 X10^3/uL (2.7-7.7); Neutrophil % 64.4 % (47-70); Platelet Count 298 K/mm3 (150-450); RBC Distribution Width CV 13.2 % (11.6-14.6); RBC Distribution Width SD 43.8 fl (35.1-43.9); Red Blood Count 4.52 M/mm3 (4.6-6.2)
[2019-04-26 07:34] LABS: ALB/GLOB Ratio 1.1 RATIO (0.9-2.4); AST(SGOT) 73 U/L (15-37); Alanine Aminotransfer ALT/SGPT 240 U/L (16-61); Albumin, Serum 3.8 g/dL (3.2-5.0); Alkaline Phosphatase 123 U/L (45-117); Anion Gap 12 (5-15); BUN 31 mg/dL (7-18); BUN/Creat Ratio 21.1 RATIO (10-20); CPK Total, Creatine Kinase 378 U/L (39-308); Calcium,Total 8.4 mg/dL (8.5-10.1); Chloride 107 mmol/L (98-107); Cholesterol 131 mg/dL (200); Creatinine, Serum 1.47 mg/dL (0.70-1.30); EST Glomerular Filtration Rate 57 mL/min (>60); Est Glom Filt Rate - Afr Amer 69 mL/min (>60); Globulin 3.5 g/dL (2.2-4.2); Glucose 111 mg/dL (74-106); High Density Lipoprotein 41 mg/dL; Potassium 3.9 mmol/L (3.5-5.1); Protein, Total 7.3 g/dL (6.4-8.2); Sodium Level 141 mmol/L (136-145); Triglycerides 84 mg/dL; Very Low Density Lipoprotein 17 mg/dL (5-40)
--- NOTE | 2019-04-26 09:03 | US_ITS ---
STUDY: ABDOMINAL ULTRASOUND - RIGHT UPPER QUADRANT REASON FOR VISIT: Male, 38 years old. Nausea and vomiting TECHNIQUE: Ultrasound evaluation of the right upper quadrant was performed with real-time and static shah-scale imaging. TECHNICAL QUALITY: Limited. Examination limited by bowel gas. COMPARISON: None. FINDINGS: Liver: The liver measures 17.4 cm. There is normal echogenicity of the liver. The bile ducts are within normal limits. There is hepatic color flow. The direction of portal flow is hepatopetal. There is no demonstrated mass lesion. Gallbladder: There is a contracted gallbladder. The gallbladder wall measures 2.7 mm. There is a negative sonographic Kaufman's sign. There is no pericholecystic fluid. There are no gallstones. Common Bile Duct (C.B.D.): The common bile duct measures 3.9 mm. Pancreas: There is nonvisualization of the pancreas. Right Kidney: Normal size of the right kidney. The right kidney measures 12.0 x 5.5 x 5.8 cm. Normal renal cortex. The right cortex measures 1.9 cm. There is no demonstrated renal mass or cyst. There is no right hydronephrosis. US/Liver IMPRESSION: Gallbladder slightly contracted but there is no sonographic evidence of cholecystitis. No demonstrated wall thickening or gallstones or pericholecystic fluid. Electronically Signed: Lacho Hussein MD at 11:59 EDT , Service support ,
[2019-04-26] MEDS: Heparin Injection (Vial) 5,000 UNIT/ML VIAL 5000 UNIT SC ×2 (09:15→21:20)
[2019-04-26] MEDS: Aspirin E.C. 81 MG Tablet PO (09:15)
[2019-04-26 09:31] VITALS: BP 138/74; PULSE 81; RESP 17; TEMP 36.6; O2SAT 98
[2019-04-26 12:52] LABS: HIV - WCH Non-Reactive (Nonreactive)
--- NOTE | 2019-04-26 14:14 | PCM.CONS.GEN ---
Reason for Consult Reason for Consultation: dorina History of Present Illness: The patient is a 38 year old M with past medical history of alcohol abuse polysubstance abuse hypertension who presented with a chief complaint of dizziness retrosternal chest pain tightness like rated 3-6 out of 10 currently at 1-2 out of 10 radiating to the neck on both sides to his back. He also had some abdominal discomfort which resolved and decreased urine output over the last 2 days prior to admission. The patient has been working outside for his [employer] job and he is blood pressure initially was 89/60 sodium 134 creatinine in the 3 range at 3.36 initially which prompted renal consult. He denies dysuria hematuria fever chills shortness of breath cough nausea vomiting diarrhea NSAID use. He has no other complaints currently. He was started on normal saline yesterday which consequently improvement in his renal function. 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 Past Medical History Past Medical History (Chronic Problems): Chronic Problems (Last Updated 01/22/19 @ 11:56 by Sandhya Palmer) HTN (hypertension) (Chronic) Tobacco use (Chronic) history of head trauma (Chronic) Medical History: Medical History (Last Updated 01/22/19 @ 11:56 by Sandhya Palmer) Hypertension I10 Allergies ciprofloxacin [From Cipro] Allergy (Verified 04/25/19 11:12) Hives Home Medications: Ambulatory Orders Medication Instructions Recorded Lisinopril 20 mg PO DAILY 12/22/18 Surgical History: - - Left clavicular surgery. Psychiatric History: No pertinent psych hx Lives: Spouse/ Significant Other Smoking Status: Current every day smoker Tobacco Use: Cigarettes Alcohol: Sober - Patient has been sober x6-year. Drugs: - - Patient has been clean x 3 years with prior to this usage of cannabis, methamphetamine, heroin which she noted to have been started. - *Family History Maternal History Items: Hypertension Paternal History Items: - - Patient states he does not know his paternal family history. Review of Systems Constitutional: Denies: Chills, Fever Eyes: Denies: Blurred vision, Double vision HEENT: Denies: Difficulty Swallowing, Post Nasal Drip Cardiovascular: Reports: Chest Pain, Light Headedness. Denies: Claudication Respiratory: Denies: Cough, Hemoptysis, Shortness of Breath Gastrointestinal: Denies: Abdominal Pain, Diarrhea, Hematemesis, Hematochezia, Vomiting Genitourinary: Denies: Dysuria, Frequency, Hematuria, Hesitancy, Incontinence, Urgency Musculoskeletal: Reports: Back Pain Skin: Denies: Jaundice Neurological: Denies: Balance problems, Double vision Endocrine: Reports: Polydipsia Patient Problems: Active and Suspected Problems (Last Updated 01/22/19 @ 11:56 by Sandhya Palmer) Acute renal failure (Acute) DORINA (acute kidney injury) (Acute) Hyponatremia (Acute) Hypotension (Acute) Rhabdomyolysis (Acute) - Physical Exam General: Alert, Oriented x3, Cooperative HEENT: Atraumatic, PERRLA, EOMI Oral: Moist Mucosa, No Gingival or Mucosal Lesions/ Ulcerations Neck: Supple, Trachea Midline Lungs: Clear to auscultation, Normal air movement, No rhonchi, No wheeze Cardiovascular: Regular rate, Regular Rhythm, Normal S1, Normal S2, No murmurs Abdomen: Bowel Sounds Present, Soft, Non Tender Extremities: No clubbing, No cyanosis, No edema Skin: No rashes Musculoskeletal: No Tenderness to Palpation of Joints or Extremities Neurological: Cranial nerves II-XII grossly intact Vital Signs Temp Pulse Resp BP Pulse Ox 97.8 F 81 17 138/74 H 98 04/26/19 09:31 04/26/19 09:31 04/26/19 09:31 04/26/19 09:31 04/26/19 09:31 Oxygen Delivery Method Room Air Weight: 80.5 kg Body Mass Index (BMI) 27.8 Intake and Output for Last 24 Hours 04/24/19 04/25/19 04/26/19 23:59 23:59 23:59 Intake Total 1991 4210 / 4210 Output Total 0 / 0 850 / 850 Balance 1991 3360 / 3360 Laboratory Tests Past 24 Hrs 04/25/19 04/25/19 04/25/19 12:20 15:30 16:32 WBC RBC Hgb Hct MCV MCH MCHC RDW Std Deviation RDW Coeff of Macie Plt Count MPV Immature Gran % (Auto) Neut % (Auto) Lymph % (Auto) [place] % (Auto) Eos % (Auto) Baso % (Auto) Absolute Neuts (auto) Absolute Lymphs (auto) Absolute Nucleated RBC Nucleated RBC % Sodium Potassium Chloride Carbon Dioxide Anion Gap BUN Creatinine Estim Creat Clear Calc Est GFR (MDRD) Af Amer Est GFR (MDRD) Non-Af BUN/Creatinine Ratio Glucose Calcium Magnesium 2.7 H Total Bilirubin AST ALT Alkaline Phosphatase Total Creatine Kinase Troponin I < 0.015 Total Protein Albumin Globulin Albumin/Globulin Ratio Triglycerides Cholesterol LDL Cholesterol VLDL Cholesterol HDL Cholesterol Urine Color Urine Clarity Urine pH Ur Specific [place] Urine Protein Urine Glucose (UA) Urine Ketones Urine Occult Blood Urine Nitrite Urine Bilirubin Urine Urobilinogen Ur Leukocyte Esterase Urine RBC Urine WBC Ur Squamous Epith Cells Urine Bacteria Hyaline Casts Fine Granular Casts Urine Mucus Ur Random Sodium Urine Creatinine Urine Opiates Screen POSITIVE H Urine Methadone Screen NEGATIVE Ur Barbiturates Screen NEGATIVE Ur Phencyclidine Scrn NEGATIVE Ur Amphetamines Screen POSITIVE H U Methamphetamin-MDMA POSITIVE H U Benzodiazepines Scrn NEGATIVE Urine Cocaine Screen NEGATIVE U Cannabinoids Screen NEGATIVE Ur Drug Screen Comment Hepatitis A IgM Ab Hepatitis A Ab Total Hep Bs Antigen Hep B Core Total Ab Hep B Core IgM Ab HIV 1&2 Antibody 04/25/19 04/25/19 04/25/19 16:32 16:32 16:32 WBC RBC Hgb Hct MCV MCH MCHC RDW Std Deviation RDW Coeff of Macie Plt Count MPV Immature Gran % (Auto) Neut % (Auto) Lymph % (Auto) [place] % (Auto) Eos % (Auto) Baso % (Auto) Absolute Neuts (auto) Absolute Lymphs (auto) Absolute Nucleated RBC Nucleated RBC % Sodium Potassium Chloride Carbon Dioxide Anion Gap BUN Creatinine Estim Creat Clear Calc Est GFR (MDRD) Af Amer Est GFR (MDRD) Non-Af BUN/Creatinine Ratio Glucose Calcium Magnesium Total Bilirubin AST ALT Alkaline Phosphatase Total Creatine Kinase Troponin I Total Protein Albumin Globulin Albumin/Globulin Ratio Triglycerides Cholesterol LDL Cholesterol VLDL Cholesterol HDL Cholesterol Urine Color Yellow Urine Clarity Clear Urine pH 5.0 Ur Specific [place] 1.030 Urine Protein 100 H Urine Glucose (UA) Normal Urine Ketones 5 H Urine Occult Blood 10 H Urine Nitrite Negative Urine Bilirubin Negative Urine Urobilinogen 1 H Ur Leukocyte Esterase 25 H Urine RBC 0 SEEN Urine WBC 5-10 SEEN Ur Squamous Epith Cells 10-25 SEEN Urine Bacteria 1+ Hyaline Casts 0-5 SEEN Fine Granular Casts 0-5 SEEN Urine Mucus 3+ Ur Random Sodium 125 Urine Creatinine 432.00 Urine Opiates Screen Urine Methadone Screen Ur Barbiturates Screen Ur Phencyclidine Scrn Ur Amphetamines Screen U Methamphetamin-MDMA U Benzodiazepines Scrn Urine Cocaine Screen U Cannabinoids Screen Ur Drug Screen Comment Hepatitis A IgM Ab Hepatitis A Ab Total Hep Bs Antigen Hep B Core Total Ab Hep B Core IgM Ab HIV 1&2 Antibody 04/25/19 04/26/19 04/26/19 18:11 06:50 06:50 WBC 10.0 RBC 4.52 L Hgb 13.6 Hct 40.9 MCV 90.5 MCH 30.1 MCHC 33.3 RDW Std Deviation 43.8 RDW Coeff of Macie 13.2 Plt Count 298 MPV 9.6 Immature Gran % (Auto) 0.300 Neut % (Auto) 64.4 Lymph % (Auto) 26.6 [place] % (Auto) 6.1 Eos % (Auto) 2.1 Baso % (Auto) 0.5 Absolute Neuts (auto) 6.4 Absolute Lymphs (auto) 2.66 Absolute Nucleated RBC 0.00 Nucleated RBC % 0 Sodium 141 Potassium 3.9 Chloride 107 Carbon Dioxide 22.0 Anion Gap 12 BUN 31 H Creatinine 1.47 H Estim Creat Clear Calc 63.70 Est GFR (MDRD) Af Amer 69 Est GFR (MDRD) Non-Af 57 L BUN/Creatinine Ratio 21.1 H Glucose 111 H Calcium 8.4 L Magnesium Total Bilirubin 0.60 AST 73 H ALT 240 H Alkaline Phosphatase 123 H Total Creatine Kinase 378 H Troponin I < 0.015 Total Protein 7.3 Albumin 3.8 Globulin 3.5 Albumin/Globulin Ratio 1.1 Triglycerides 84 Cholesterol 131 LDL Cholesterol 73 VLDL Cholesterol 17 HDL Cholesterol 41 Urine Color Urine Clarity Urine pH Ur Specific [place] Urine Protein Urine Glucose (UA) Urine Ketones Urine Occult Blood Urine Nitrite Urine Bilirubin Urine Urobilinogen Ur Leukocyte Esterase Urine RBC Urine WBC Ur Squamous Epith Cells Urine Bacteria Hyaline Casts Fine Granular Casts Urine Mucus Ur Random Sodium Urine Creatinine Urine Opiates Screen Urine Methadone Screen Ur Barbiturates Screen Ur Phencyclidine Scrn Ur Amphetamines Screen U Methamphetamin-MDMA U Benzodiazepines Scrn Urine Cocaine Screen U Cannabinoids Screen Ur Drug Screen Comment Hepatitis A IgM Ab Hepatitis A Ab Total Hep Bs Antigen Hep B Core Total Ab Hep B Core IgM Ab HIV 1&2 Antibody 04/26/19 04/26/19 09:30 09:30 WBC RBC Hgb Hct MCV MCH MCHC RDW Std Deviation RDW Coeff of Macie Plt Count MPV Immature Gran % (Auto) Neut % (Auto) Lymph % (Auto) [place] % (Auto) Eos % (Auto) Baso % (Auto) Absolute Neuts (auto) Absolute Lymphs (auto) Absolute Nucleated RBC Nucleated RBC % Sodium Potassium Chloride Carbon Dioxide Anion Gap BUN Creatinine Estim Creat Clear Calc Est GFR (MDRD) Af Amer Est GFR (MDRD) Non-Af BUN/Creatinine Ratio Glucose Calcium Magnesium Total Bilirubin AST ALT Alkaline Phosphatase Total Creatine Kinase Troponin I Total Protein Albumin Globulin Albumin/Globulin Ratio Triglycerides Cholesterol LDL Cholesterol VLDL Cholesterol HDL Cholesterol Urine Color Urine Clarity Urine pH Ur Specific [place] Urine Protein Urine Glucose (UA) Urine Ketones Urine Occult Blood Urine Nitrite Urine Bilirubin Urine Urobilinogen Ur Leukocyte Esterase Urine RBC Urine WBC Ur Squamous Epith Cells Urine Bacteria Hyaline Casts Fine Granular Casts Urine Mucus Ur Random Sodium Urine Creatinine Urine Opiates Screen Urine Methadone Screen Ur Barbiturates Screen Ur Phencyclidine Scrn Ur Amphetamines Screen U Methamphetamin-MDMA U Benzodiazepines Scrn Urine Cocaine Screen U Cannabinoids Screen Ur Drug Screen Comment Hepatitis A IgM Ab Pending Hepatitis A Ab Total Pending Hep Bs Antigen Pending Hep B Core Total Ab Pending Hep B Core IgM Ab Pending HIV 1&2 Antibody Non-Reactive Assessment/Plan All Active Problems (Last Updated 01/22/19 @ 11:56 by Sandhya Palmer) Acute renal failure (Acute) DORINA (acute kidney injury) (Acute) Hyponatremia (Acute) Hypotension (Acute) Rhabdomyolysis (Acute) Polysubstance abuse (Resolved) Pilonidal cyst (Acute) DORINA prerenal/ATN with fluid depletion continue IV fluid creatinine is 1.4 from 3.3 yesterday Rhabdomyolysis mild continue IV fluids Hypertension controlled off meds Proteinuria check a spot urine protein creatinine further work-up depending on degree Hyponatremia resolved secondary to fluid repletion Substance abuse and all other medical issues as per primary team
[2019-04-26 16:01] VITALS: BP 136/81; PULSE 83; RESP 16; TEMP 36.8; O2SAT 97
[2019-04-26] MEDS: Acetaminophen 325 MG Tablet 650 MG PO ×2 (16:09→23:15)
[2019-04-26 19:46] LABS: Protein, Urine (Random) 8.3 mg/dL (<11.9)
[2019-04-26 21:10] VITALS: BP 135/80; PULSE 89; RESP 13; TEMP 36.4; O2SAT 96
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
[2019-04-27 03:00] VITALS: BP 130/81; PULSE 76; RESP 13; TEMP 36.6; O2SAT 96
--- NOTE | 2019-04-27 03:17 | EKG12_ITS ---
Test Reason : CP ADMISSION Blood Pressure : / mmHG Vent. Rate : 088 BPM Atrial Rate : 088 BPM P-R Int : 178 ms QRS Dur : 100 ms QT Int : 384 ms P-R-T Axes : 079 021 039 degrees QTc Int : 464 ms Normal sinus rhythm Incomplete right bundle branch block Borderline ECG When compared with ECG of 25-APR-2019 11:19, MANUAL COMPARISON REQUIRED, DATA IS UNCONFIRMED Confirmed by DARREL VIGIL, ADDIE ([id number]), film editor supervisor WILL PRESTON ([id number]) on 04/28/2019 1:58:31 PM Referred By: ESTER Confirmed By:ADDIE ROJO MD
--- NOTE | 2019-04-27 03:37 | NURSING ---
EKG reviewed and no significant changes noted.
[2019-04-27 05:17] LABS: Absolute Lymphocyte Count 2.45 X10^3/uL (0.83-4.51); Absolute Neutrophil Count 3.7 X10^3/uL (2.0-7.7); Basophil# 0.05 X10^3/uL; Basophil% 0.7 % (0-1); Eosinophil# 0.26 X10^3/uL; Eosinophils% 3.7 % (0-5); Hematocrit 40.4 % (40-54); Hemoglobin 13.3 g/dL (13.0-16.5); Lymphocyte # 2.45 X10^3/ul (4.0); Lymphocyte % 35.3 % (19-41); Mean Corp Hgb Conc 32.9 g/dL (32-36); Mean Corpuscular Hgb 30.2 pg (27.0-32.0); Mean Corpuscular Volume 91.8 fL (80-94); Mean Platelet Vol. 9.7 fl (6.2-12.0); Monocyte% 7.2 % (0-10); NRBC Flagged by Analyzer 0 % (0-5); Neutrophil # 3.67 X10^3/uL (2.7-7.7); Platelet Count 262 K/mm3 (150-450); RBC Distribution Width CV 13.2 % (11.6-14.6); RBC Distribution Width SD 44.9 fl (35.1-43.9); White Blood Count 6.9 K/mm3 (4.4-11.0)
[2019-04-27 05:52] LABS: AST(SGOT) 70 U/L (15-37); Alanine Aminotransfer ALT/SGPT 194 U/L (16-61); Albumin, Serum 3.2 g/dL (3.2-5.0); Alkaline Phosphatase 110 U/L (45-117); Anion Gap 7 (5-15); BUN 17 mg/dL (7-18); BUN/Creat Ratio 16.5 RATIO (10-20); CPK Total, Creatine Kinase 301 U/L (39-308); Calcium,Total 8.4 mg/dL (8.5-10.1); Chloride 110 mmol/L (98-107); Creatinine, Serum 1.03 mg/dL (0.70-1.30); EST Glomerular Filtration Rate 86 mL/min (>60); Est Glom Filt Rate - Afr Amer 104 mL/min (>60); Estimated Creatinine Clearance 90.91 ml/min; Globulin 3.3 g/dL (2.2-4.2); Glucose 91 mg/dL (74-106); Potassium 4.5 mmol/L (3.5-5.1); Protein, Total 6.5 g/dL (6.4-8.2); Sodium Level 144 mmol/L (136-145)
[2019-04-27] MEDS: 0.9% Normal Saline 1,000 ML 150 ML IV (07:03)
[2019-04-27 08:02] VITALS: O2SAT 96
[2019-04-27 08:15] VITALS: BP 141/88; PULSE 73; RESP 16; TEMP 36.5; O2SAT 97
--- NOTE | 2019-04-27 10:36 | PCM.PN.REN ---
Patient Problems: Active and Suspected Problems (Last Updated 01/22/19 @ 11:56 by Sandhya Palmer) Acute renal failure (Acute) DORINA (acute kidney injury) (Acute) Hyponatremia (Acute) Hypotension (Acute) Rhabdomyolysis (Acute) Subjective: still has right flank pain - Physical Exam General: Alert, Oriented x3, Cooperative HEENT: Atraumatic, PERRLA, EOMI, Normocephalic Neck: Supple, No JVD, Negative Carotid Bruits Lungs: Clear to auscultation, Normal air movement Cardiovascular: Regular rate, No murmurs Abdomen: Bowel Sounds Present, Soft, Non Tender Extremities: No edema, Capillary Refill Less than 3 Seconds Skin: No rashes, No breakdown Musculoskeletal: No Tenderness to Palpation of Joints or Extremities Neurological: Cranial nerves II-XII grossly intact Psych/Mental Status: Normal Affect, Appropriate Vital Signs Temp Pulse Resp BP Pulse Ox 97.7 F L 73 16 141/88 H 97 04/27/19 08:15 04/27/19 08:15 04/27/19 08:15 04/27/19 08:15 04/27/19 08:15 Oxygen Delivery Method Room Air Weight: 80.5 kg Body Mass Index (BMI) 27.8 Intake and Output for Last 24 Hours 04/25/19 04/26/19 04/27/19 23:59 23:59 23:59 Intake Total 1991 6814 / 6814 1466 / 1466 Output Total 0 / 0 1750 / 1750 680 / 680 Balance 1991 5064 / 5064 786 / 786 Microbiology Past 72 Hours 04/25/19 16:32 Urine Culture - Preliminary Urine, Clean Catch Culture exhibits no growth. Laboratory Tests Past 24 Hrs 04/26/19 04/26/19 04/26/19 09:30 18:43 18:43 WBC RBC Hgb Hct MCV MCH MCHC RDW Std Deviation RDW Coeff of Macie Plt Count MPV Immature Gran % (Auto) Neut % (Auto) Lymph % (Auto) [place] % (Auto) Eos % (Auto) Baso % (Auto) Absolute Neuts (auto) Absolute Lymphs (auto) Absolute Nucleated RBC Nucleated RBC % Sodium Potassium Chloride Carbon Dioxide Anion Gap BUN Creatinine Estim Creat Clear Calc Est GFR (MDRD) Af Amer Est GFR (MDRD) Non-Af BUN/Creatinine Ratio Glucose Calcium Total Bilirubin AST ALT Alkaline Phosphatase Total Creatine Kinase Total Protein Albumin Globulin Albumin/Globulin Ratio U Random Total Protein 8.3 Urine Creatinine 67.80 HIV 1&2 Antibody Non-Reactive 04/27/19 04/27/19 05:06 05:06 WBC 6.9 RBC 4.40 L Hgb 13.3 Hct 40.4 MCV 91.8 MCH 30.2 MCHC 32.9 RDW Std Deviation 44.9 H RDW Coeff of Macie 13.2 Plt Count 262 MPV 9.7 Immature Gran % (Auto) 0.100 Neut % (Auto) 53.0 Lymph % (Auto) 35.3 [place] % (Auto) 7.2 Eos % (Auto) 3.7 Baso % (Auto) 0.7 Absolute Neuts (auto) 3.7 Absolute Lymphs (auto) 2.45 Absolute Nucleated RBC 0.00 Nucleated RBC % 0 Sodium 144 Potassium 4.5 Chloride 110 H Carbon Dioxide 27.0 Anion Gap 7 BUN 17 Creatinine 1.03 Estim Creat Clear Calc 90.91 Est GFR (MDRD) Af Amer 104 Est GFR (MDRD) Non-Af 86 BUN/Creatinine Ratio 16.5 Glucose 91 Calcium 8.4 L Total Bilirubin 0.30 AST 70 H ALT 194 H Alkaline Phosphatase 110 Total Creatine Kinase 301 Total Protein 6.5 Albumin 3.2 Globulin 3.3 Albumin/Globulin Ratio 1.0 U Random Total Protein Urine Creatinine HIV 1&2 Antibody Medical Necessity - Tobacco Use Smoking Status: Current every day smoker Tobacco Use: Cigarettes Assessment/Plan All Active Problems (Last Updated 01/22/19 @ 11:56 by Sandhya Palmer) Acute renal failure (Acute) DORINA (acute kidney injury) (Acute) Hyponatremia (Acute) Hypotension (Acute) Rhabdomyolysis (Acute) Polysubstance abuse (Resolved) Pilonidal cyst (Acute) DORINA prerenal/ATN with fluid depletion continue IV fluid creatinine is better Rhabdomyolysis resolved Proteinuria check a spot urine protein creatinine further work-up depending on degree Hyponatremia resolved secondary to fluid repletion Substance abuse as per primary team
[2019-04-27] MEDS: Heparin Injection (Vial) 5,000 UNIT/ML VIAL 5000 UNIT SC (10:39)
[2019-04-27] MEDS: Aspirin E.C. 81 MG Tablet PO (10:39)
--- NOTE | 2019-04-27 11:39 | CASEMGMT ---
Assessment- 04-27-19 Living situation- Patient lives with his in a 1 story home with several entry steps PCP: Iza Villarreal, Nurse Practitioner at [facility] Specialists: None Pharmacy: [facility] DME: None ADL's/IADL's: Independent Past SNF/rehab: No Past HH: No LW: No POA: No SW met with patient, introduced self and role at [facility]. Patient was sleeping, but he did wake up to talk with SW. SW asked if he had any transportation issues and he said he did not. SW also asked if he would like any resources for alcohol and drug treatment. He declined. SW told him if he changes his mind to ask anyone for the Clinic Office Assistant. Plan: d/c home with no needs Gogo HER MSW
--- NOTE | 2019-04-27 11:43 | DCINST_ITS ---
- Discharge Diagnoses Current Active Problems: Current Active and Chronic Problems (Last Updated 01/22/19 @ 11:56 by Sandhya Palmer) Acute renal failure (Acute) DORINA (acute kidney injury) (Acute) Hyponatremia (Acute) Hypotension (Acute) Rhabdomyolysis (Acute) HTN (hypertension) (Chronic) Tobacco use (Chronic) Reason(s) for Visit for Discharge Instructions: Chest pain, acute kidney injury You will use the following diet at home:: Regular Your food should be the consistency of: Regular Your liquids should be the consistency of: Regular/Thin Discharge Activity: Return to Normal Activity Additional Instructions: Continue to keep yourself hydrated. Follow-up with your primary care doctor within 1 to 2 weeks. Advised stop using alcohol, meth and heroin. You would need repeat blood work done within 1 to 2 weeks with your primary care doctor. Allergies/Adverse Reactions: Allergies ciprofloxacin [From Cipro] Allergy (Verified 04/25/19 11:12) Hives Medications to take at Discharge Lisinopril 20 mg PO DAILY 12/22/18 Nicotine [Nicoderm] 14 mg TRANSDERM. DAILY #30 patch 04/27/19 Senna/Docusate Sodium [Senokot-S] 2 tab PO BID PRN PRN #60 tab 04/27/19 The following prescriptions were given: Nicotine [Nicoderm] 14 mg TRANSDERM. DAILY #30 patch Transmission Status: Pending to [id number] Senna/Docusate Sodium [Senokot-S] 2 tab PO BID PRN PRN #60 tab PRN Reason: Constipation Transmission Status: Pending to [id number] Primary Care Physician: Iza Villarreal NP-C [Primary Care Provider] - Please follow up with your Primary Care Physician in: within 1-2 weeks Test Results: Test results from this visit will be discussed in further detail at your follow- up appointment, if applicable. Proposed Discharge Date: 04/27/19
--- NOTE | 2019-04-27 11:47 | DS.PCM_ITS ---
Discharge Date and Diagnosis - Problem List Patient Problems: Active and Suspected Problems (Last Updated 01/22/19 @ 11:56 by Sandhya Palmer) Acute renal failure (Acute) DORINA (acute kidney injury) (Acute) Hyponatremia (Acute) Hypotension (Acute) Rhabdomyolysis (Acute) Date of Admission: 04/25/19 Date of Discharge: 04/27/19 - Primary Discharge Diagnosis Active and Suspected Problems (Last Updated 01/22/19 @ 11:56 by Sandhya Palmer) DORINA (acute kidney injury) (Acute) Musculoskeletal chest pain Leukocytosis, reactive Hyponatremia, hypovolemic (Acute) Hypotension (Acute) secondary to dehydration Rhabdomyolysis (Acute) Polysubstance use Nicotine dependence - Secondary Discharge Diagnosis Chronic Problems (Last Updated 01/22/19 @ 11:56 by Sandhya Palmer) HTN (hypertension) (Chronic) Tobacco use (Chronic) history of head trauma (Chronic) Hospital Course and Treatment Imaging Results: Clinical Impression(s) from Imaging Studies Chest X-Ray 04/25/19 12:07 IMPRESSION: Stable, nonacute portable x-ray examination of the chest. Electronically Signed: Ashu Aragon MD at 12:19 EDT , Service support , Abdomen/Pelvis CT 04/25/19 13:58 IMPRESSION: 1. No hydronephrosis. Electronically Signed: Ashu Aragon MD at 15:48 EDT , Service support , Renal Ultrasound 04/25/19 13:58 IMPRESSION: No hydronephrosis. Electronically Signed: Ashu Aragon MD at 15:42 EDT , Service support , Liver Ultrasound 04/26/19 09:03 IMPRESSION: Gallbladder slightly contracted but there is no sonographic evidence of cholecystitis. No demonstrated wall thickening or gallstones or pericholecystic fluid. Electronically Signed: Lacho Hussein MD at 11:59 EDT , Service support , None Operations: None Procedures: None Summary of Care Provided: The patient is a 38 year old M with past medical history of substance use disorder, hypertension who comes in with complaints of lightheadedness, dizziness, chest discomfort as well as musculoskeletal pain. Patient admitted to ongoing heavy work outside of his [employer] job with poor po intake. He was admitted with blood pressure of 89/60, heart rate 117. His lab work was abnormal with WBC count of 16.4, hemoglobin 15.6, platelet 236, BM P showed sodium 134, BUN 30, creatinine 3.36, troponin was 0.032, total CK was 350. He was admitted to telemetry floor and managed as acute kidney injury secondary to poor p.o. intake/dehydration. He was aggressively hydrated with improvement in his kidney function. Nephrology was consulted. His hyponatremia also r esolved with hydration. He had mild rhabdomyolysis on admission resolved with hydration. His hypotension also resolved with IV fluids. Patient will continue to improve and was subsequently discharged in a stable state Patient Problems: Active and Suspected Problems (Last Updated 01/22/19 @ 11:56 by Sandhya Palmer) Acute renal failure (Acute) DORINA (acute kidney injury) (Acute) Hyponatremia (Acute) Hypotension (Acute) Rhabdomyolysis (Acute) Subjective: On the day of discharge, patient was seen and examined. He felt well. He denied any new complains. Denies any dizziness, palpitations, chest pain. - Physical Exam General: Alert, Oriented x3, Cooperative HEENT: Atraumatic, PERRLA, EOMI, Normocephalic Oral: Moist Mucosa Neck: Supple Lungs: Clear to auscultation, Normal air movement Cardiovascular: Regular rate, Regular Rhythm, Normal S1, Normal S2, No murmurs Abdomen: Bowel Sounds Present, Soft, Non Tender, Non-Distended Extremities: No edema Skin: No rashes, No breakdown Musculoskeletal: - - Spasm and obvious swelling of right posterior lumbar region, not new Neurological: Cranial nerves II-XII grossly intact Psych/Mental Status: Normal Affect, Appropriate Vital Signs Temp Pulse Resp BP Pulse Ox 97.7 F L 73 16 141/88 H 97 04/27/19 08:15 04/27/19 08:15 04/27/19 08:15 04/27/19 08:15 04/27/19 08:15 Oxygen Delivery Method Room Air Weight: 80.5 kg Body Mass Index (BMI) 27.8 Intake and Output for Last 24 Hours 04/25/19 04/26/19 04/27/19 23:59 23:59 23:59 Intake Total 1991 6814 / 6814 1466 / 1466 Output Total 0 / 0 1750 / 1750 680 / 680 Balance 1991 5064 / 5064 786 / 786 Microbiology Past 72 Hours 04/25/19 16:32 Urine Culture - Preliminary Urine, Clean Catch Culture exhibits no growth. Laboratory Tests Past 24 Hrs 04/26/19 04/26/19 04/26/19 09:30 18:43 18:43 WBC RBC Hgb Hct MCV MCH MCHC RDW Std Deviation RDW Coeff of Macie Plt Count MPV Immature Gran % (Auto) Neut % (Auto) Lymph % (Auto) [place] % (Auto) Eos % (Auto) Baso % (Auto) Absolute Neuts (auto) Absolute Lymphs (auto) Absolute Nucleated RBC Nucleated RBC % Sodium Potassium Chloride Carbon Dioxide Anion Gap BUN Creatinine Estim Creat Clear Calc Est GFR (MDRD) Af Amer Est GFR (MDRD) Non-Af BUN/Creatinine Ratio Glucose Calcium Total Bilirubin AST ALT Alkaline Phosphatase Total Creatine Kinase Total Protein Albumin Globulin Albumin/Globulin Ratio U Random Total Protein 8.3 Urine Creatinine 67.80 HIV 1&2 Antibody Non-Reactive 04/27/19 04/27/19 05:06 05:06 WBC 6.9 RBC 4.40 L Hgb 13.3 Hct 40.4 MCV 91.8 MCH 30.2 MCHC 32.9 RDW Std Deviation 44.9 H RDW Coeff of Macie 13.2 Plt Count 262 MPV 9.7 Immature Gran % (Auto) 0.100 Neut % (Auto) 53.0 Lymph % (Auto) 35.3 [place] % (Auto) 7.2 Eos % (Auto) 3.7 Baso % (Auto) 0.7 Absolute Neuts (auto) 3.7 Absolute Lymphs (auto) 2.45 Absolute Nucleated RBC 0.00 Nucleated RBC % 0 Sodium 144 Potassium 4.5 Chloride 110 H Carbon Dioxide 27.0 Anion Gap 7 BUN 17 Creatinine 1.03 Estim Creat Clear Calc 90.91 Est GFR (MDRD) Af Amer 104 Est GFR (MDRD) Non-Af 86 BUN/Creatinine Ratio 16.5 Glucose 91 Calcium 8.4 L Total Bilirubin 0.30 AST 70 H ALT 194 H Alkaline Phosphatase 110 Total Creatine Kinase 301 Total Protein 6.5 Albumin 3.2 Globulin 3.3 Albumin/Globulin Ratio 1.0 U Random Total Protein Urine Creatinine HIV 1&2 Antibody Discharge Diet: No Restrictions Discharge Activity: Return to Normal Activity Home Medications: Medications to take at Discharge Lisinopril 20 mg PO DAILY 12/22/18 Nicotine [Nicoderm] 14 mg TRANSDERM. DAILY #30 patch 04/27/19 Senna/Docusate Sodium [Senokot-S] 2 tab PO BID PRN PRN #60 tab 04/27/19 cycloBENZAPRine HCl [Flexeril] 10 mg PO TID PRN PRN #20 tab 04/27/19 Following Prescrptions Were Given to Patient: cycloBENZAPRine HCl [Flexeril] 10 mg PO TID PRN PRN #20 tab PRN Reason: Spasms Transmission Status: Received by [facility] Nicotine [Nicoderm] 14 mg TRANSDERM. DAILY #30 patch Prescription Printed Senna/Docusate Sodium [Senokot-S] 2 tab PO BID PRN PRN #60 tab PRN Reason: Constipation Prescription Printed Primary Care Physician: Iza Villarreal NP-C [Primary Care Provider] - Please follow up with your Primary Care Physician in: within 1-2 weeks Disposition: Home Minutes spent on discharge:: 40 Patient Condition:: Stable Medical Necessity - Tobacco Use Smoking Status: Current every day smoker Tobacco Use: Cigarettes Meaningful Use Info Meaningful Use Diagnoses (Choose all that apply): None applicable Code Visit Inpatient E&M: 33101 Disch Hosp
[2019-04-27] MEDS: cycloBENZAPRine HCl 10 MG Tablet PO (12:05)
[2019-04-27 13:35] VITALS: BP 152/87; PULSE 83; RESP 16; O2SAT 96
[2019-04-28 12:07] LABS: HEPATITIS B SURFACE AG Negative (Negative); Hepatitis A AB, Total Negative (Negative); Hepatitis A IgM Antibody Negative (Negative); Hepatitis B Core AB IgM Negative (Negative); Hepatitis B Core Ab Total Negative (Negative)
--- NOTE | 2019-04-28 14:52 | CASEMGMT ---
MACK CM DC PHONE CALL DC DATE: 04/27/19 DC Disposition: Home Diagnosis on Discharge: ARF, Hyponatremia, Hypotension LACE/STRATA: 06/09 Attempted call- phone listed is not in service. Luisa FATIMAN RN ACM
[2019-04-29 10:38] LABS: Hep B Surface Antibodies Non Reactive (.)
[2019-04-29 10:47] LABS: Hepatitis C Ab >11.0 s/co ratio (0.0-0.9)
== END 2019-04-27 17:03 | disposition home or self-care (01) | DRG 469 ==
LOC: ED 13:11 → PCU 13:32
PROVIDERS: Internal Medicine; Admitting Provider Family Medicine; Emergency Provider Emergency Medicine; Family Provider Nurse Practitioner Family; PCP Nurse Practitioner Family; Visit Provider Internal Medicine
DX: N17.9 Acute kidney failure, unspecified (principal); E87.1 Hypo-osmolality and hyponatremia; M62.82 Rhabdomyolysis; I95.9 Hypotension, unspecified; F19.10 Other psychoactive substance abuse, uncomplicated; I10 Essential (primary) hypertension; E86.1 Hypovolemia; D72.829 Elevated white blood cell count, unspecified; E86.0 Dehydration; F17.210 Nicotine dependence, cigarettes, uncomplicated
CPT/HCPCS: 36415; 71045; 74176; 76705; 76770; 80048; 80053; 80061; 80076; 80307; 81001; 82550; 82570; 83735; 84156; 84300; 84484; 85025; 86703; 86704; 86705; 86706; 86708; 86709; 86803; 87086; 87340; 93005; 99285; J7030; A4216